=== PATIENT | female | born 1950 | race Caucasian/White ===

== ENCOUNTER 2019-01-13 15:45 | Inpatient (IN) | payer MEDICARE, OTHER ==
[~2019-01-13] VITALS: Ht 172.7 cm; Wt 56.8 kg
[2019-01-13] VITALS (7 sets, daily range): BP systolic 82–138; BP diastolic 50–78
[2019-01-13 16:56] LABS: BASOPHILS % (AUTO) 0 % (0-10); EOSINOPHILS # (AUTO) 0.1 10^3/uL (0.0-0.3); EOSINOPHILS % (AUTO) 0 % (0-10); HEMATOCRIT 45 % (35-52); HEMOGLOBIN 14.7 G/DL (11.5-16.0); LYMPHOCYTES # (AUTO) 0.8 X 10^3 (1.0-4.0); LYMPHOCYTES % (AUTO) 4 % (12-44); MEAN CORPUSCULAR HEMOGLOBIN 29 PG (25-34); MEAN CORPUSCULAR HGB CONC 33 G/DL (32-36); MEAN CORPUSCULAR VOLUME 90 FL (80-99); MEAN PLATELET VOLUME 10.3 FL (7.4-10.4); MONOCYTES # (AUTO) 1.9 X 10^3 (0.0-1.0); MONOCYTES % (AUTO) 9 % (0-12); NEUTROPHILS # (AUTO) 18.7 X 10^3 (1.8-7.8); NEUTROPHILS % (AUTO) 86 % (42-75); PLATELET COUNT 272 10^3/uL (130-400); RED CELL DISTRIBUTION WIDTH 13.4 % (10.0-14.5); WHITE BLOOD COUNT 21.7 10^3/uL (4.3-11.0)
[2019-01-13 16:57] LABS: BASOPHILS # (AUTO) 0.1 10^3/uL (0.0-0.1)
[2019-01-13 17:08] LABS: CHLORIDE 102 MMOL/L (98-107); POTASSIUM 4.2 MMOL/L (3.6-5.0); SODIUM 143 MMOL/L (135-145)
[2019-01-13 17:09] LABS: ALANINE AMINOTRANSFERASE 16 U/L (0-55); ALBUMIN 4.3 GM/DL (3.2-4.5); ALKALINE PHOSPHATASE 107 U/L (40-136); BILIRUBIN,TOTAL 0.5 MG/DL (0.1-1.0); BUN/CREATININE RATIO 31; CALCIUM 9.5 MG/DL (8.5-10.1); CARBON DIOXIDE 20 MMOL/L (21-32); CREATININE SERUM 0.72 MG/DL (0.60-1.30); GFR ESTIMATED > 60; GLUCOSE 109 MG/DL (70-105); TOTAL PROTEIN 7.3 GM/DL (6.4-8.2)
[2019-01-13 17:27] LABS: BILIRUBIN,URINE NEGATIVE (NEGATIVE); CLARITY,URINE CLEAR; COLOR,URINE YELLOW; GLUCOSE, URINE (UA) NEGATIVE (NEGATIVE); KETONES,URINE NEGATIVE (NEGATIVE); NITRITE,URINE NEGATIVE (NEGATIVE); PH,URINE 7.5 (5-9); PROTEIN,URINE NEGATIVE (NEGATIVE)
[2019-01-13 17:28] LABS: LEUKOCYTE ESTERASE ,URINE NEGATIVE (NEGATIVE); SQUAMOUS EPITHELIAL CELL,UR RARE /HPF
[2019-01-13 17:28] LABS: BAND NEUTROPHILS 12 %; BASOPHILS % (MANUAL) 0 %; EOSINOPHILS % (MANUAL) 0 %; LYMPHOCYTES % (MANUAL) 3 %; MONOCYTES % (MANUAL) 9 %; NEUTROPHILS % (MANUAL) 76 %; RBC MORPH NORMAL
[2019-01-13] MEDS ORDERED: fentaNYL INJECTION 100 MCG/2 ML AMP ONE (17:39)
[2019-01-13] MEDS ORDERED: HOLD METFORMIN - RECEIVED CONTRAST 20 ML VIAL IV SCH (17:45)
[2019-01-13] MEDS ORDERED: NS 100 ML (IVPB) BAG IV ONE (17:45)
[2019-01-13] MEDS ORDERED: fentaNYL INJECTION 100 MCG/2 ML AMP IVP ONE ×2 (17:45→19:30)
[2019-01-13] MEDS ORDERED: CATHETER FLUSH 10 ML SYR IV PRN (17:45)
[2019-01-13] MEDS ORDERED: IOHEXOL 350 MG/ML 100 ML (OMNIPAQUE 350) VIAL IV ONE (17:45)
--- NOTE | 2019-01-13 17:46 | ED GI ---
General Chief Complaint: Abdominal/GI Problems Stated Complaint: LOWER ABD PAIN Nursing Triage Note: Patient reports lower abdomen pain and constipation Sepsis Screen: No Definite Risk Source of Information: Patient Exam Limitations: No Limitations (HALEY ZIMMER MD) History of Present Illness Date Seen by Provider: Jan 13, 2019 Time Seen by Provider: 16:40 Initial Comments The patient is a 68-year-old white female who presents with a complaint of low abdominal pain. She reports that when she awakened this morning she had the sensation that she needed to defecate. This sensation has increased through the day but she has been unable to have a bowel movement. She normally has a bowel movement each day but occasionally has a skipped day. The pain has an increased through the day. She still feels as if she needs to have a bowel movement but has been unable to do so. There have been no belly surgeries other than a Pfannenstiel type . She considers herself otherwise been in good health. Timing/Duration: 12 Hours Severity/Quality: Moderate Location: Suprapubic Radiation: No Radiation (HALEY ZIMMER MD) Allergies and Home Medications Allergies Coded Allergies: No Known Drug Allergies (Unverified , 01/13/19) Patient Home Medication List Home Medication List Reviewed: Yes (DONALD NAVAS MD) Review of Systems Review of Systems Constitutional: see HPI EENTM: No Symptoms Reported Respiratory: No Symptoms Reported Cardiovascular: No Symptoms Reported Gastrointestinal: See HPI, Abdominal Pain Genitourinary: No Symptoms Reported Musculoskeletal: no symptoms reported Skin: no symptoms reported Psychiatric/Neurological: No Symptoms Reported Endocrine: No Symptoms Reported Hematologic/Lymphatic: No Symptoms Reported (HALEY ZIMMER MD) Past Yivyneu-Odrddc-Cudtpd Hx Patient Social History Alcohol Use: Denies Use Recreational Drug Use: No Smoking Status: Never a Smoker 2nd Hand Smoke Exposure: No Recent Foreign Travel: No Contact w/Someone Who Travel: No Recent Infectious Disease Expo: No Recent Hopitalizations: No Physical Abuse: No Sexual Abuse: No Mistreated: No Fear: No (HALEY ZIMMER MD) Seasonal Allergies Seasonal Allergies: No (HALEY ZIMMER MD) Past Medical History Surgeries: Yes Section Respiratory: No Cardiac: No Neurological: No Genitourinary: No Gastrointestinal: No Musculoskeletal: Yes Chronic Back Pain Endocrine: No HEENT: No Cancer: No Psychosocial: No Integumentary: No Blood Disorders: No (HALEY ZIMMER MD) Physical Exam Vital Signs Vital Signs - First Documented 01/13/19 15:55 Temp 98.1 Pulse 71 Resp 20 B/P (MAP) 110/64 (79) Pulse Ox 99 O2 Delivery Room Air (DONALD NAVAS MD) Vital Signs Capillary Refill : Less Than 3 Seconds (HALEY ZIMMER MD) Height/Weight/BMI Height: 5'8.00" Weight: 124lbs. oz. [id number]; BMI Method:Stated General Appearance: moderate distress HEENT: normal ENT inspection Neck: full range of motion Respiratory: chest non-tender, lungs clear, normal breath sounds, no respiratory distress, no accessory muscle use Cardiovascular: normal peripheral pulses, regular rate, rhythm, no edema, no gallop, no JVD, no murmur Gastrointestinal: normal bowel sounds, non tender, soft, no organomegaly, no pulsatile mass Extremities: normal range of motion, non-tender, normal inspection, no pedal edema, no calf tenderness, normal capillary refill, pelvis stable Back: normal inspection Neurologic/Psychiatric: writer II-XII nml as tested, no motor/sensory deficits, alert, normal mood/affect, oriented x 3 Skin: normal color, warm/dry Lymphatic: no adenopathy (HALEY ZIMMER MD) Focused Exam Lactate Level 01/13/19 19:10: (DONALD NAVAS MD) Lactic Acid Level Laboratory Tests Test 01/13/19 19:10 (DONALD NAVAS MD) Progress/Results/Core Measures Results/Orders Lab Results Laboratory Tests Test 01/13/19 16:45 01/13/19 17:00 01/13/19 17:40 01/13/19 19:10 Range/Units White Blood Count 21.7 H 4.3-11.0 10^3/uL Red Blood Count 5.01 4.35-5.85 10^6/uL Hemoglobin 14.7 11.5-16.0 G/DL Hematocrit 45 35-52 % Mean Corpuscular Volume 90 80-99 FL Mean Corpuscular Hemoglobin 29 25-34 PG Mean Corpuscular Hemoglobin Concent 33 32-36 G/DL Red Cell Distribution Width 13.4 10.0-14.5 % Platelet Count 272 130-400 10^3/uL Mean Platelet Volume 10.3 7.4-10.4 FL Neutrophils (%) (Auto) 86 H 42-75 % Lymphocytes (%) (Auto) 4 L 12-44 % Monocytes (%) (Auto) 9 0-12 % Eosinophils (%) (Auto) 0 0-10 % Basophils (%) (Auto) 0 0-10 % Neutrophils # (Auto) 18.7 H 1.8-7.8 X 10^3 Lymphocytes # (Auto) 0.8 L 1.0-4.0 X 10^3 Monocytes # (Auto) 1.9 H 0.0-1.0 X 10^3 Eosinophils # (Auto) 0.1 0.0-0.3 10^3/uL Basophils # (Auto) 0.1 0.0-0.1 10^3/uL Neutrophils % (Manual) 76 % Lymphocytes % (Manual) 3 % Monocytes % (Manual) 9 % Eosinophils % (Manual) 0 % Basophils % (Manual) 0 % Band Neutrophils 12 % Blood Morphology Comment NORMAL Sodium Level 143 135-145 MMOL/L Potassium Level 4.2 3.6-5.0 MMOL/L Chloride Level 102 98-107 MMOL/L Carbon Dioxide Level 20 L 21-32 MMOL/L Anion Gap 21 H 5-14 MMOL/L Blood Urea Nitrogen 22 H 7-18 MG/DL Creatinine 0.72 0.60-1.30 MG/DL Estimat Glomerular Filtration Rate > 60 BUN/Creatinine Ratio 31 Glucose Level 109 H 70-105 MG/DL Calcium Level 9.5 8.5-10.1 MG/DL Corrected Calcium 9.3 8.5-10.1 MG/DL Total Bilirubin 0.5 0.1-1.0 MG/DL Aspartate Amino Transf (AST/SGOT) 18 5-34 U/L Alanine Aminotransferase (ALT/SGPT) 16 0-55 U/L Alkaline Phosphatase 107 40-136 U/L Total Protein 7.3 6.4-8.2 GM/DL Albumin 4.3 3.2-4.5 GM/DL Urine Color YELLOW YELLOW Urine Clarity CLEAR BROWN Urine pH 7.5 5.0 5-9 Urine Specific [place] <1.005 >1.030 1.016-1.022 Urine Protein NEGATIVE TRACE NEGATIVE Urine Glucose (UA) NEGATIVE NEGATIVE NEGATIVE Urine Ketones NEGATIVE NEGATIVE NEGATIVE Urine Nitrite NEGATIVE NEGATIVE NEGATIVE Urine Bilirubin NEGATIVE 2+ H NEGATIVE Urine Urobilinogen 1.0 1.0 NORMAL MG/DL Urine Leukocyte Esterase NEGATIVE TRACE NEGATIVE Urine RBC (Auto) NEGATIVE NEGATIVE NEGATIVE Urine RBC NONE NONE /HPF Urine WBC NONE 2-5 /HPF Urine Squamous Epithelial Cells RARE 0-2 /HPF Urine Crystals NONE NONE /LPF Urine Bacteria NONE NONE /HPF Urine Casts NONE NONE /LPF Urine Mucus NEGATIVE NEGATIVE /LPF Urine Culture Indicated NO NO (DONALD NAVAS MD) My Orders Orders - DONALD NAVAS MD Ns Iv 1000 Ml (Sodium Chloride 0.9%) (01/13/19 18:00) Blood Culture (01/13/19 18:44) Vancomycin Injection (Vancomycin Injecti (01/13/19 18:45) Piperacillin/Tazobactam (Bulk) (Zosyn In (01/13/19 18:45) Ns Iv 1000 Ml (Sodium Chloride 0.9%) (01/13/19 19:00) Piperacillin Sodium/Tazobactam (Zosyn Vi (01/13/19 19:02) Water (Sterile) For Injection (Sterile W (01/13/19 19:02) Ns (Ivpb) (Sodium Chloride 0.9% Ivpb Bag (01/13/19 19:03) Fentanyl Injection (Sublimaze Injection (01/13/19 19:30) (DONALD NAVAS MD) Medications Given in ED Current Medications Medications Dose Ordered Sig/Antonella Route Start Time Stop Time Status Last Admin Dose Admin Fentanyl Citrate 50 mcg ONCE ONCE IVP 01/13/19 17:45 01/13/19 17:46 DC 01/13/19 17:45 50 MCG Iohexol 100 ml ONCE ONCE IV 01/13/19 17:45 01/13/19 18:12 DC 01/13/19 18:09 100 ML Piperacillin Sod/ Tazobactam Sod 4.5 gm/Sodium Chloride 120 ml @ 240 mls/hr ONCE ONCE IV 01/13/19 18:45 01/13/19 19:14 DC 01/13/19 19:14 240 MLS/HR Sodium Chloride 10 ml NEEDED PRN IV 01/13/19 17:45 01/13/19 18:09 10 ML Sodium Chloride 100 ml ONCE ONCE IV 01/13/19 17:45 01/13/19 18:12 DC 01/13/19 18:09 80 ML Sodium Chloride 1,000 ml @ 0 mls/hr Q0M ONCE IV 01/13/19 18:00 01/13/19 18:01 DC 01/13/19 18:20 0 MLS/HR (DONALD NAVAS MD) Vital Signs/I&O 01/13/19 15:55 Temp 98.1 Pulse 71 Resp 20 B/P (MAP) 110/64 (79) Pulse Ox 99 O2 Delivery Room Air (DONALD NAVAS MD) Blood Pressure Mean: 79 Progress Progress Note : Time: 19:23 Progress Note Patient care the patient at 6 p.m. shift change from Dr. Zimmer. The patient had an elevated white count of 21,000. Lactic gas and blood cultures have been done. Patient's CT the abdomen and pelvis showed dilated loops of bowels consistent with a bowel obstruction. I'm awaiting the formal reading from radiology. Telephone consultation was undertaken with Drs. Luna and Karen. The patient was given a gram of vancomycin and 4.5 g of Zosyn. This 50 kg female received at least 2 L of fluid. Patient was made more comfortable with IV fentanyl. She was transferred to a monitored telemetry bed at [place]. Bridge orders were written. (DONALD NAVAS MD) Departure Communication (Admissions) Time/Spoke to Admitting Phy: 19:27 Dr. Luna Time/Spoke to Consulting Phy: 19:27 Dr. Jones (DONALD NAVAS MD) Impression Primary Impression: Bowel obstruction Qualified Codes: K56.609 - Unspecified intestinal obstruction, unspecified as to partial versus complete obstruction Additional Impression: Sepsis Qualified Codes: A41.9 - Sepsis, unspecified organism Disposition: ADMITTED INPATIENT Condition: Improved Admissions Decision to Admit Reason: Admit from ER (General) Decision to Admit/Date: Jan 13, 2019 Time/Decision to Admit Time: 19:27 (DONALD NAVAS MD) Departure-Patient Inst. Referrals: MICHAEL MEHTA MD (PCP) Primary Care Physician HALEY ZIMMER MD Jan 13, 2019 17:46 DONALD NAVAS MD Jan 13, 2019 19:28
[2019-01-13] MEDS ORDERED: NS IV 1000 ML 1,000 ML IV ONE (18:00)
[2019-01-13 18:17] LABS: CLARITY,URINE BROWN; COLOR,URINE YELLOW
[2019-01-13 18:18] LABS: BILIRUBIN,URINE 2+ (NEGATIVE); GLUCOSE, URINE (UA) NEGATIVE (NEGATIVE); KETONES,URINE NEGATIVE (NEGATIVE); LEUKOCYTE ESTERASE ,URINE TRACE (NEGATIVE); NITRITE,URINE NEGATIVE (NEGATIVE); PROTEIN,URINE TRACE (NEGATIVE); SQUAMOUS EPITHELIAL CELL,UR 0-2 /HPF
[2019-01-13] MEDS ORDERED: VANCOMYCIN INJECTION 1,000 MG in NS (IVPB) 250 ML IV SCH (18:45)
[2019-01-13] MEDS ORDERED: PIPERACILLIN/TAZOBACTAM (BULK) 4.5 GM in NS (IVPB) 100 ML IV ONE (18:45)
[2019-01-13] MEDS ORDERED: NS IV 1000 ML 1,000 ML IV SCH ×2 (19:00→21:15)
[2019-01-13] MEDS ORDERED: WATER (STERILE) FOR INJECTION 20 ML ONE (19:02)
[2019-01-13] MEDS ORDERED: PIPERACILLIN/TAZO 4.5 GM VIAL (ZOSYN) IV ONE (19:02)
[2019-01-13] MEDS ORDERED: NS (IVPB) 100 ML ONE (19:03)
[2019-01-13] MEDS ORDERED: VANCOMYCIN 1000 MG/VIAL ONE (19:22)
[2019-01-13] MEDS ORDERED: NS (IVPB) 250 ML ONE (19:22)
--- NOTE | 2019-01-13 19:34 | Diagnostic Imaging Report ---
PROCEDURE: CT abdomen and pelvis with contrast. TECHNIQUE: Multiple contiguous axial images were obtained through the abdomen and pelvis after administration of intravenous contrast. Auto Exposure Controls were utilized during the CT exam to meet ALARA standards for radiation dose reduction. INDICATION: Low abdominal pain since earlier today. Prior history of . No other surgeries known. EXAMINATION: CT abdomen and pelvis with contrast, 01/13/2019. COMPARISON: None. FINDINGS: The colon is difficult to follow in its course. There is a markedly dilated and fluid/debris-filled loop of bowel along the midline extending proximally to distally within the abdomen. This could represent a portion of a markedly distended sigmoid colon with the distal most colon decompressed. A distal obstructive process is difficult to exclude. Additionally, a swirling type appearance to the vessels and fatty tissue in the mid posterior abdomen is noted where there is a narrowed loop of large bowel, possibly portions of the sigmoid. A volvulus is not excluded. The region of the cecum is more normal in appearance but difficult to evaluate the appendix and separate from adjacent small bowel loops. No definite abscess or free air is seen. There is free fluid, however, in the pelvis. The kidneys demonstrate no acute disease. Cystic lesions are noted, bilaterally, some of which are too small for characterization. Hiatal hernia is noted. The spleen, pancreas and adrenal glands are unremarkable. Multiple cystic lesions throughout the liver are noted. Some are simple in appearance, others are indeterminate and could be followed with a dedicated CT of the liver using liver protocol non-emergently. A slightly prominent lymph node in the anterior right cardiophrenic angle noted, perhaps due to an inflammatory process but this should be followed to assure resolution. Several prominent lymph nodes in the retroperitoneum are also noted and nonspecific as well. The lung bases demonstrate chronic findings. There are subpleural nodularities, bilaterally, which could be followed to assure stability. The osseous structures demonstrate no chronic findings. IMPRESSION: 1. Markedly distended bowel loops in the midline of the abdomen, perhaps a distended sigmoid colon. See above discussion. This would suggest possible distal obstructive process versus a sigmoid volvulus. An abscess in the region is difficult to completely exclude but not definitely visualized at this time. Free fluid in pelvis is likely reactive. 2. No definite free air is seen at this time. 3. Lymphadenopathy which could be reactive; however, this should be followed to assure resolution and exclude a metastatic process. 4. Cystic lesions in the liver, see above discussion and recommendations. Other findings as above. Report was faxed to the [facility] at 7:35 p.m., by eric. Dictated by: Dictated on workstation # [id number]
--- NOTE | 2019-01-13 20:30 | NUR ---
ADILSON HARDEN admitted to room 422-1, with an admitting diagnosis of BOWEL OBSTRUCTION AND SEPSIS, on 01/13/19 from [place] via EMS, accompanied by EMS.ADILSON HARDEN introduced to surroundings, call light, bed controls, phone, TV, temperature control, lights, meal times, smoking policy, visitor policy, side rail policy, bathrooms and showers. Patient Rights given to patient in the handbook. ADILSON HARDEN verbalizes understanding that [facility] is not responsible for the loss or damage to any personal effects or valuables that are kept in the patients posession during their hospitalization.
--- NOTE | 2019-01-13 20:53 | Consultation - Surgery ---
History of Present Illness History of Present Illness Patient Consulted On(srinath/time) 01/13/19 20:45 Date Seen by Provider: Jan 13, 2019 Time Seen by Provider: 20:46 History of Present Illness Consult requested by Dr. Romero for bowel obstruction. Patient is a 68 year old female that has had feeling the need to defecate since this morning. She has not has any success and the feeling has continued to worsen all day. Nothing is making things better and she states time has just made things worse. Patient states that she does have discomfort in the lower abdomen. Not passing flatus. Has been extremely nauseated and dry heaves. She does have occasional bouts of constipation. Patient has never had a colonoscopy. She denies fever sweats chills shortness of breath or chest pain. She had a ct scan that I reviewed showing dilated loops of colon suspicious for obstruction of colon or sigmoid volvlus. Allergies and Home Medications Allergies Coded Allergies: No Known Drug Allergies (Unverified , 01/13/19) Patient Home Medication List Home Medication List Reviewed: Yes Past Wmnmbem-Pwbkln-Sedwra Hx Patient Social History Alcohol Use: Denies Use Recreational Drug Use: No Smoking Status: Never a Smoker 2nd Hand Smoke Exposure: No Recent Foreign Travel: No Contact w/Someone Who Travel: No Recent Infectious Disease Expo: No Recent Hopitalizations: No Seasonal Allergies Seasonal Allergies: No Surgeries History of Surgeries: Yes Surgeries: Section Respiratory History of Respiratory Disorde: No Cardiovascular History of Cardiac Disorders: No Neurological History of Neurological Disord: No Genitourinary History of Genitourinary Disor: No Gastrointestinal History of Gastrointestinal Di: No Musculoskeletal History of Musculoskeletal Dis: Yes Musculoskeletal Disorders: Chronic Back Pain Endocrine History of Endocrine Disorders: No HEENT History of HEENT Disorders: No Cancer History of Cancer: No Psychosocial History of Psychiatric Problem: No Integumentary History of Skin or Integumenta: No Blood Transfusions History of Blood Disorders: No Family Medical History Significant Family History: No Pertinent Family Hx Review of Systems-General Constitutional: no symptoms reported EENTM: no symptoms reported Respiratory: no symptoms reported Cardiovascular: no symptoms reported Gastrointestinal: see HPI Genitourinary: no symptoms reported Musculoskeletal: no symptoms reported Skin: no symptoms reported Psychiatric/Neurological: No Symptoms Reported Physical Exam-General Problems Physical Exam Vital Signs Vital Signs - First Documented 01/13/19 15:55 Temp 98.1 Pulse 71 Resp 20 B/P (MAP) 110/64 (79) Pulse Ox 99 O2 Delivery Room Air Capillary Refill : Less Than 3 Seconds General Appearance: mild distress HEENT: PERRL/EOMI, normal ENT inspection Neck: non-tender, full range of motion, supple, normal inspection Respiratory: chest non-tender, no respiratory distress, no accessory muscle use Cardiovascular: regular rate, rhythm Gastrointestinal: distended (slight), tenderness (minimal in lower abdomen) Rectal: deferred (at this time) Back: normal inspection, no CVA tenderness Extremities: normal range of motion, non-tender, normal inspection Neurologic/Psychiatric: feed management advisor II-XII nml as tested, no motor/sensory deficits, alert, normal mood/affect, oriented x 3 Skin: normal color, warm/dry Lymphatic: no adenopathy Data Review Labs Laboratory Tests 01/13/19 16:45: White Blood Count 21.7H, Red Blood Count 5.01, Hemoglobin 14.7, Hematocrit 45, Mean Corpuscular Volume 90, Mean Corpuscular Hemoglobin 29, Mean Corpuscular Hemoglobin Concent 33, Red Cell Distribution Width 13.4, Platelet Count 272, Mean Platelet Volume 10.3, Neutrophils (%) (Auto) 86H, Lymphocytes (%) (Auto) 4L , Monocytes (%) (Auto) 9, Eosinophils (%) (Auto) 0, Basophils (%) (Auto) 0, Neutrophils # (Auto) 18.7H, Lymphocytes # (Auto) 0.8L, Monocytes # (Auto) 1.9H, Eosinophils # (Auto) 0.1, Basophils # (Auto) 0.1, Neutrophils % (Manual) 76, Lymphocytes % (Manual) 3, Monocytes % (Manual) 9, Eosinophils % (Manual) 0, Basophils % (Manual) 0, Band Neutrophils 12, Blood Morphology Comment NORMAL, Sodium Level 143, Potassium Level 4.2, Chloride Level 102, Carbon Dioxide Level 20L, Anion Gap 21H, Blood Urea Nitrogen 22H, Creatinine 0.72, Estimat Glomerular Filtration Rate > 60, BUN/Creatinine Ratio 31, Glucose Level 109H, Calcium Level 9.5, Corrected Calcium 9.3, Total Bilirubin 0.5, Aspartate Amino Transf (AST/SGOT) 18, Alanine Aminotransferase (ALT/SGPT) 16, Alkaline Phosphatase 107, Total Protein 7.3, Albumin 4.3 01/13/19 17:00: Urine Color YELLOW, Urine Clarity CLEAR, Urine pH 7.5, Urine Specific [place] <1.005, Urine Protein NEGATIVE, Urine Glucose (UA) NEGATIVE, Urine Ketones NEGATIVE, Urine Nitrite NEGATIVE, Urine Bilirubin NEGATIVE, Urine Urobilinogen 1.0, Urine Leukocyte Esterase NEGATIVE, Urine RBC (Auto) NEGATIVE, Urine RBC NONE, Urine WBC NONE, Urine Squamous Epithelial Cells RARE, Urine Crystals NONE, Urine Bacteria NONE, Urine Casts NONE, Urine Mucus NEGATIVE, Urine Culture Ind icated NO 01/13/19 17:40: Urine Color YELLOW, Urine Clarity BROWN, Urine pH 5.0, Urine Specific [place] >1.030, Urine Protein TRACE, Urine Glucose (UA) NEGATIVE, Urine Ketones NEGATIVE, Urine Nitrite NEGATIVE, Urine Bilirubin 2+H, Urine Urobilinogen 1.0, Urine Leukocyte Esterase TRACE, Urine RBC (Auto) NEGATIVE, Urine RBC NONE, Urine WBC 2-5, Urine Squamous Epithelial Cells 0-2, Urine Crystals NONE, Urine Bacteria NONE, Urine Casts NONE, Urine Mucus NEGATIVE, Urine Culture Indicated NO 01/13/19 19:10: Lactic Acid Level 1.03 Assessment/Plan Assessment/Plan Assessment/Plan colonic obstruction possible from distal obstructive process or sigmoid volvulus Nausea leukocytosis patient ct scan reviewed and discussed with patient. discussed need for further evaluation with flexible endoscopy, but also discussed may need exploratory laparotomy possible colon resection possible colostomy all other indicated pro cedures. she understands all risks and benefits and wishes to proceed. To endoscopy at this time. JOSSE CAMACHO DO Jan 13, 2019 20:53
[2019-01-13] MEDS ORDERED: fentaNYL INJECTION 100 MCG/2 ML AMP IV PRN (21:15)
[2019-01-13] MEDS ORDERED: ONDANSETRON 4 MG/2 ML (SDV) Z0FRAN IV PRN (21:15)
[2019-01-13] MEDS ORDERED: LACTATED RINGERS 1,000 ML IV ONE (21:25)
[2019-01-13] MEDS ORDERED: MIDAZOLAM 2 MG/2 ML (VERSED) VIAL ONE (21:27)
[2019-01-13] MEDS ORDERED: PROPOFOL INJECTION 50 ML IV ONE (21:27)
[2019-01-13] MEDS ORDERED: ONDANSETRON 4 MG/2 ML (SDV) Z0FRAN ONE (21:29)
--- OUTSIDE RECORDS SUMMARY | 2019-01-13 21:46 | XMS REPORT | Continuity of Care Document ---
Author Organization Unknown Address Unknown Allergies There is no data. Medications There is no data. Problems There is no data. Procedures There is no data. Results There is no data. Encounters ACCT No. Visit Date/Time Discharge Status Pt. Type Provider Facility Loc./Unit Complaint [id number] 10/07/2018 16:00:00 10/07/2018 23:59:59 CLS Outpatient [facility]
--- OUTSIDE RECORDS SUMMARY | 2019-01-13 21:59 | XMS REPORT | Continuity of Care Document ---
Author Organization Unknown Address Unknown Allergies There is no data. Medications There is no data. Problems There is no data. Procedures There is no data. Results There is no data. Encounters ACCT No. Visit Date/Time Discharge Status Pt. Type Provider Facility Loc./Unit Complaint [id number] 10/07/2018 16:00:00 10/07/2018 23:59:59 CLS Outpatient [facility]
--- NOTE | 2019-01-13 22:50 | Progress Note-Post Operative ---
Post-Operative Progess Note Surgeon (s)/Field Technical Specialist (s) Surgeon JOSSE CAMACHO DO Field Technical Specialist: na Pre-Operative Diagnosis colonic obstruction Post-Operative Diagnosis sigmoid volvulus, superficial ischemic change sigmoid short segment Procedure & Operative Findings Date of Procedure 01/13/19 Procedure Performed/Findings flexible sigmoidoscopy Anesthesia Type per perinatal coordinator Estimated Blood Loss Estimated blood loss (mL): none Specimens/Packing Specimens Removed na JOSSE CAMACHO DO Jan 13, 2019 22:50
--- NOTE | 2019-01-13 22:52 | NUR ---
DR. CAMACHO CALLED THIS RN AND ORDERS VANCOMYCIN IV PHARMACY TO DOSE AND PIPERACILLIN/TAZO 4.5 GM/ NS 100 MLS IV @30 MLS/HR Q8H. ORDERS READ BACK AND VERIFIED.
[2019-01-13] MEDS ORDERED: PIPERACILLIN/TAZOBACTAM (BULK) 4.5 GM in NS (IVPB) 100 ML IV SCH (23:15)
[2019-01-13] MEDS: D5 LR IV SOLUTION 1,000 ML IV SCH (23:37)
[2019-01-14] VITALS (7 sets, daily range): BP systolic 88–105; BP diastolic 43–58
[2019-01-14] MEDS ORDERED: NS (IVPB) 100 ML ONE (00:44)
[2019-01-14] MEDS ORDERED: PIPERACILLIN/TAZO 4.5 GM VIAL (ZOSYN) IV ONE (00:44)
[2019-01-14] MEDS: PIPERACILLIN/TAZO 4.5 GM/NS 100 ML IV SCH ×6 (01:00→16:35)
--- NOTE | 2019-01-14 03:19 | OPERATIVE REPORT ---
DATE OF SERVICE: 01/13/2019 PREOPERATIVE DIAGNOSIS: Colonic obstruction. POSTOPERATIVE DIAGNOSIS: Sigmoid volvulus superficial ischemic change in the sigmoid short segment. PROCEDURE: Flexible sigmoidoscopy. SURGEON: Josse Jones DO ANESTHESIA: Per LABORATORY MANAGER. ESTIMATED BLOOD LOSS: None. COMPLICATIONS: None. INDICATIONS: The patient is a 68-year-old female who presented from [facility]. She was having abdominal discomfort and had CT scan finding of colonic obstruction either obstructive process versus sigmoid volvulus. She was discussed risks and benefits of procedure and wished to proceed with procedure. Consent was signed in the chart. DESCRIPTION OF PROCEDURE: The patient was taken to the endoscopy suite, placed in left lateral recumbent position. Timeout was performed. Digital rectal exam was performed. There were no palpable polyps, masses or ulcerations. Scope was inserted into the rectum and advanced up to the rectum into the sigmoid where a spiral affect was present with air and gentle pressure, this area was able to be maneuvered through resolving the volvulus. Scope was continued to be advanced demonstrated dilated colon. No other pathology visualized at that time. Once in the sigmoid colon, the colon was then decompressed and the scope was then slowly retracted back. At the point of where the volvulus was present, there was some superficial appearing ischemic changes. These do appear to be superficial and not full thickness just of the superficial mucosa, very short segment of this. Scope was then continuously slow retracted back until withdrawn into the rectum and then continued to be withdrawn until completely out. The patient tolerated the procedure well without any complications. She was taken to recovery room in stable condition. RECOMMENDATIONS: The patient is to continue close observation. Concern for the ischemic area; however, this does appear to be superficial and this may continue to improve since the volvulus was corrected. There is a chance of recurrence of the volvulus or progression of the ischemia, which the patient understands. If the patient continues to improve, we would plan on resection of this area after prepping to make a one-step surgical intervention, if things worsen. The patient understands that she may need exploratory laparotomy for resection and end colostomy. Job ID: [id number] DocumentID: [id number] Dictated Date: 01/13/2019 22:49:32 [employer]ocate Date: 01/14/2019 03:19:15 Dictated By: JOSSE JONES DO [facility]
--- NOTE | 2019-01-14 05:01 | NUR ---
THIS RN CALLED DR. GARRISON IN REGARDS TO THE PT'S BLOOD PRESSURE BEING 88/50 WITH A HEART RATE OF 84 BPM WITH A TEMPERATURE OF 100.4 TEMPORALLY. ORDERS RECEIVED TO INCREASE DEXTROSE 5%/LACTATED RINGERS IV FROM 125 MLS/HR TO 150 MLS/HR. ORDERS READ BACK AND VERIFIED. WILL CONTINUE TO MONITOR.
[2019-01-14] MEDS: D5 LR IV SOLUTION 1,000 ML IV SCH ×3 (07:00→17:46)
[2019-01-14 09:38] LABS: HEMOGLOBIN 12.2 G/DL (11.5-16.0); MEAN PLATELET VOLUME 10.7 FL (7.4-10.4); RED CELL DISTRIBUTION WIDTH 13.9 % (10.0-14.5); WHITE BLOOD COUNT 15.3 10^3/uL (4.3-11.0)
[2019-01-14 09:57] LABS: BUN/CREATININE RATIO 16; CALCIUM 8.3 MG/DL (8.5-10.1); CARBON DIOXIDE 23 MMOL/L (21-32); CHLORIDE 109 MMOL/L (98-107); CREATININE SERUM 0.81 MG/DL (0.60-1.30); GFR ESTIMATED > 60; GLUCOSE 122 MG/DL (70-105); POTASSIUM 3.6 MMOL/L (3.6-5.0); SODIUM 139 MMOL/L (135-145)
--- NOTE | 2019-01-14 10:11 | Progress Note - Surgery ---
Subjective Date Seen by a Provider: Jan 14, 2019 Time Seen by a Provider: 08:04 Subjective/Events-last exam Patient feeling better. Passing flatus. Not having pain at this time. Denies n/v fever sweats chills shortness of breath or chest pain. Focused Exam Lactate Level 01/13/19 19:10: Lactic Acid Level 1.03 Objective Exam Vital Signs Date Time Temp Pulse Resp B/P (MAP) Pulse Ox O2 Delivery O2 Flow Rate FiO2 01/14/19 08:06 99.0 82 18 104/51 (68) 96 Room Air 01/14/19 07:00 74 01/14/19 06:00 99.7 89 93/55 (68) 01/14/19 04:50 100.4 84 18 88/50 (63) 99 Room Air 01/14/19 01:00 89 01/13/19 23:57 99.0 87 20 109/70 (83) 97 Room Air 01/13/19 23:28 93 01/13/19 23:12 OxyMask 6 01/13/19 22:30 83 18 100 Room Air 01/13/19 22:25 88 18 100 OxyMask 4 01/13/19 22:20 96 18 100 OxyMask 6 01/13/19 22:15 108 18 100 OxyMask 6 01/13/19 22:10 97.9 96 18 100 OxyMask 6 01/13/19 20:50 99.4 81 20 99/68 Room Air 99.00 01/13/19 20:30 Room Air 01/13/19 19:33 98.2 81 18 104/63 (77) 95 Room Air 01/13/19 15:55 98.1 71 20 110/64 (79) 99 Room Air Capillary Refill : Less Than 3 Seconds General Appearance: No Apparent Distress (laying in bed) HEENT: PERRL/EOMI Neck: Non Tender, Supple Respiratory: No Accessory Muscle Use, No Respiratory Distress Cardiovascular: Regular Rate, Rhythm Gastrointestinal: non tender, soft, no organomegaly Extremity: Normal Range of Motion, Non Tender Neurologic/Psychiatric: Alert, Oriented x3, No Motor/Sensory Deficits, Normal Mood/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, 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 as Tested Skin: Normal Color, Warm/Dry Lymphatic: No Adenopathy Results Lab Laboratory Tests 01/13/19 16:45: White Blood Count 21.7H, Red Blood Count 5.01, Hemoglobin 14.7, Hematocrit 45, Mean Corpuscular Volume 90, Mean Corpuscular Hemoglobin 29, Mean Corpuscular Hemoglobin Concent 33, Red Cell Distribution Width 13.4, Platelet Count 272, Mean Platelet Volume 10.3, Neutrophils (%) (Auto) 86H, Lymphocytes (%) (Auto) 4L , Monocytes (%) (Auto) 9, Eosinophils (%) (Auto) 0, Basophils (%) (Auto) 0, Neutrophils # (Auto) 18.7H, Lymphocytes # (Auto) 0.8L, Monocytes # (Auto) 1.9H, Eosinophils # (Auto) 0.1, Basophils # (Auto) 0.1, Neutrophils % (Manual) 76, Lymphocytes % (Manual) 3, Monocytes % (Manual) 9, Eosinophils % (Manual) 0, Basophils % (Manual) 0, Band Neutrophils 12, Blood Morphology Comment NORMAL, Sodium Level 143, Potassium Level 4.2, Chloride Level 102, Carbon Dioxide Level 20L, Anion Gap 21H, Blood Urea Nitrogen 22H, Creatinine 0.72, Estimat Glomerular Filtration Rate > 60, BUN/Creatinine Ratio 31, Glucose Level 109H, Calcium Level 9.5, Corrected Calcium 9.3, Total Bilirubin 0.5, Aspartate Amino Transf (AST/SGOT) 18, Alanine Aminotransferase (ALT/SGPT) 16, Alkaline Phosphatase 107, Total Protein 7.3, Albumin 4.3 01/13/19 17:00: Urine Color YELLOW, Urine Clarity CLEAR, Urine pH 7.5, Urine Specific [place] <1.005, Urine Protein NEGATIVE, Urine Glucose (UA) NEGATIVE, Urine Ketones NEGATIVE, Urine Nitrite NEGATIVE, Urine Bilirubin NEGATIVE, Urine Urobilinogen 1.0, Urine Leukocyte Esterase NEGATIVE, Urine RBC (Auto) NEGATIVE, Urine RBC NONE, Urine WBC NONE, Urine Squamous Epithelial Cells RARE, Urine Crystals NONE, Urine Bacteria NONE, Urine Casts NONE, Urine Mucus NEGATIVE, Urine Culture Indicated NO 01/13/19 17:40: Urine Color YELLOW, Urine Clarity BROWN, Urine pH 5.0, Urine Specific [place] >1.030, Urine Protein TRACE, Urine Glucose (UA) NEGATIVE, Urine Ketones NEGATIVE, Urine Nitrite NEGATIVE, Urine Bilirubin 2+H, Urine Urobilinogen 1.0, Urine Leukocyte Esterase TRACE, Urine RBC (Auto) NEGATIVE, Urine RBC NONE, Urine WBC 2-5, Urine Squamous Epithelial Cells 0-2, Urine Crystals NONE, Urine Bacteria NONE, Urine Casts NONE, Urine Mucus NEGATIVE, Urine Culture Indicated NO 01/13/19 19:10: Lactic Acid Level 1.03 01/14/19 09:30: White Blood Count 15.3H, Red Blood Count 4.21L, Hemoglobin 12.2, Hematocrit 37, Mean Corpuscular Volume 88, Mean Corpuscular Hemoglobin 29, Mean Corpuscular Hemoglobin Concent 33, Red Cell Distribution Width 13.9, Platelet Count 254, Mean Platelet Volume 10.7H, Sodium Level 139, Potassium Level 3.6, Chloride Level 109H, Carbon Dioxide Level 23, Anion Gap 7, Blood Urea Nitrogen 13, Creatinine 0.81, Estimat Glomerular Filtration Rate > 60, BUN/Creatinine Ratio 16, Glucose Level 122H, Calcium Level 8.3L Assessment/Plan Assessment/Plan Assessment/Plan colonic obstruction sigmoid volvulus Nausea leukocytosis superficial ischemia of sigmoid short segment endoscopy showing sigmoid volvulus which was able to be reduced and had some superficial ischemia. wbc coming down, not having pain. will continue to medically optimize, if change may need emergent ex lap continue to monitor at this time, discussing sigmoid resection with patient Clinical Quality Measures DVT/VTE Risk/Contraindication: Risk Factor Score Per Nursin RFS Level Per Nursing on Admit: 4+=Very High JOSSE CAMACHO DO Jan 14, 2019 10:11
[2019-01-14] MEDS: VANCOMYCIN INJECTION 1,000 MG in NS (IVPB) 250 ML IV SCH (15:22)
--- NOTE | 2019-01-14 15:23 | History & Physical ---
HPI History of Present Illness: 68 yo F that presented with a couple days of worsening abdominal pain. States that yesterday it became unbearable and that is what brought her in. She states that she does not take medication and does not like to go to the doctor. She had been having loose stools and having nausea but denies any blood in stool. Never had any episode like this in the past. Source: patient Exam Limitations: no limitations Date seen by provider: Jan 14, 2019 Time Seen by Provider: 12:25 Attending Physician Angela Luna MD PCP Michael Mehta MD Consult Date of Admission Jan 13, 2019 at 18:30 Home Medications Home Medications Reviewed patient Home Medication Reconciliation performed by pharmacy medication reconciliations color technician and/or nursing. Patients Allergies have been reviewed. Allergies Coded Allergies: No Known Drug Allergies (Unverified , 01/13/19) EYC-Annukp-Kmzpyq Hx Patient Social History Alcohol Use: Denies Use Recreational Drug Use: No Smoking Status: Never a Smoker 2nd Hand Smoke Exposure: No Recent Foreign Travel: No Contact w/other who traveled: No Recent Hopitalizations: No Recent Infectious Disease Expo: No Family Medical History Significant Family History: No Pertinent Family Hx Review of Systems ([facility]) Constitutional: No chills, No fever; malaise; No weight loss EENTM: no symptoms reported; No nose congestion, No nose pain, No throat pain Respiratory: no symptoms reported; No cough, No dyspnea on exertion, No short of breath Cardiovascular: no symptoms reported; No chest pain, No edema, No palpitations Gastrointestinal: abdominal pain (RLQ), loss of appetite; No melena; nausea Genitourinary: no symptoms reported; No dysuria, No frequency, No hematuria : No Musculoskeletal: no symptoms reported; No back pain, No joint pain, No muscle pain Skin: no symptoms reported Psychiatric/Neurological: No Symptoms Reported Reviewed Test Results Reviewed Test Results Lab Laboratory Tests Test 01/13/19 16:45 01/13/19 17:00 01/13/19 17:40 01/13/19 19:10 Range/Units White Blood Count 21.7 H 4.3-11.0 10^3/uL Red Blood Count 5.01 4.35-5.85 10^6/uL Hemoglobin 14.7 11.5-16.0 G/DL Hematocrit 45 35-52 % Mean Corpuscular Volume 90 80-99 FL Mean Corpuscular Hemoglobin 29 25-34 PG Mean Corpuscular Hemoglobin Concent 33 32-36 G/DL Red Cell Distribution Width 13.4 10.0-14.5 % Platelet Count 272 130-400 10^3/uL Mean Platelet Volume 10.3 7.4-10.4 FL Neutrophils (%) (Auto) 86 H 42-75 % Lymphocytes (%) (Auto) 4 L 12-44 % Monocytes (%) (Auto) 9 0-12 % Eosinophils (%) (Auto) 0 0-10 % Basophils (%) (Auto) 0 0-10 % Neutrophils # (Auto) 18.7 H 1.8-7.8 X 10^3 Lymphocytes # (Auto) 0.8 L 1.0-4.0 X 10^3 Monocytes # (Auto) 1.9 H 0.0-1.0 X 10^3 Eosinophils # (Auto) 0.1 0.0-0.3 10^3/uL Basophils # (Auto) 0.1 0.0-0.1 10^3/uL Neutrophils % (Manual) 76 % Lymphocytes % (Manual) 3 % Monocytes % (Manual) 9 % Eosinophils % (Manual) 0 % Basophils % (Manual) 0 % Band Neutrophils 12 % Blood Morphology Comment NORMAL Sodium Level 143 135-145 MMOL/L Potassium Level 4.2 3.6-5.0 MMOL/L Chloride Level 102 98-107 MMOL/L Carbon Dioxide Level 20 L 21-32 MMOL/L Anion Gap 21 H 5-14 MMOL/L Blood Urea Nitrogen 22 H 7-18 MG/DL Creatinine 0.72 0.60-1.30 MG/DL Estimat Glomerular Filtration Rate > 60 BUN/Creatinine Ratio 31 Glucose Level 109 H 70-105 MG/DL Calcium Level 9.5 8.5-10.1 MG/DL Corrected Calcium 9.3 8.5-10.1 MG/DL Total Bilirubin 0.5 0.1-1.0 MG/DL Aspartate Amino Transf (AST/SGOT) 18 5-34 U/L Alanine Aminotransferase (ALT/SGPT) 16 0-55 U/L Alkaline Phosphatase 107 40-136 U/L Total Protein 7.3 6.4-8.2 GM/DL Albumin 4.3 3.2-4.5 GM/DL Urine Color YELLOW YELLOW Urine Clarity CLEAR BROWN Urine pH 7.5 5.0 5-9 Urine Specific [place] <1.005 >1.030 1.016-1.022 Urine Protein NEGATIVE TRACE NEGATIVE Urine Glucose (UA) NEGATIVE NEGATIVE NEGATIVE Urine Ketones NEGATIVE NEGATIVE NEGATIVE Urine Nitrite NEGATIVE NEGATIVE NEGATIVE Urine Bilirubin NEGATIVE 2+ H NEGATIVE Urine Urobilinogen 1.0 1.0 NORMAL MG/DL Urine Leukocyte Esterase NEGATIVE TRACE NEGATIVE Urine RBC (Auto) NEGATIVE NEGATIVE NEGATIVE Urine RBC NONE NONE /HPF Urine WBC NONE 2-5 /HPF Urine Squamous Epithelial Cells RARE 0-2 /HPF Urine Crystals NONE NONE /LPF Urine Bacteria NONE NONE /HPF Urine Casts NONE NONE /LPF Urine Mucus NEGATIVE NEGATIVE /LPF Urine Culture Indicated NO NO Lactic Acid Level 1.03 0.50-2.00 MMOL/L Test 01/14/19 09:30 Range/Units White Blood Count 15.3 H 4.3-11.0 10^3/uL Red Blood Count 4.21 L 4.35-5.85 10^6/uL Hemoglobin 12.2 11.5-16.0 G/DL Hematocrit 37 35-52 % Mean Corpuscular Volume 88 80-99 FL Mean Corpuscular Hemoglobin 29 25-34 PG Mean Corpuscular Hemoglobin Concent 33 32-36 G/DL Red Cell Distribution Width 13.9 10.0-14.5 % Platelet Count 254 130-400 10^3/uL Mean Platelet Volume 10.7 H 7.4-10.4 FL Sodium Level 139 135-145 MMOL/L Potassium Level 3.6 3.6-5.0 MMOL/L Chloride Level 109 H 98-107 MMOL/L Carbon Dioxide Level 23 21-32 MMOL/L Anion Gap 7 5-14 MMOL/L Blood Urea Nitrogen 13 7-18 MG/DL Creatinine 0.81 0.60-1.30 MG/DL Estimat Glomerular Filtration Rate > 60 BUN/Creatinine Ratio 16 Glucose Level 122 H 70-105 MG/DL Calcium Level 8.3 L 8.5-10.1 MG/DL Physical Exam-([facility]) Physical Exam Vital Signs VS - Last 72 Hours, by Label 01/13/19 01/13/19 01/13/19 01/13/19 15:55 19:33 20:30 20:50 Temp 98.1 98.2 99.4 Pulse 71 81 81 Resp 20 18 20 B/P (MAP) 110/64 (79) 104/63 (77) 99/68 Pulse Ox 99 95 O2 Delivery Room Air Room Air Room Air Room Air O2 Flow Rate 99.00 01/13/19 01/13/19 01/13/19 01/13/19 22:10 22:15 22:20 22:25 Temp 97.9 Pulse 96 108 96 88 Resp 18 18 18 18 Pulse Ox 100 100 100 100 O2 Delivery OxyMask OxyMask OxyMask OxyMask O2 Flow Rate 6 6 6 4 01/13/19 01/13/19 01/13/19 01/13/19 22:30 23:12 23:28 23:57 Temp 99.0 Pulse 83 93 87 Resp 18 20 B/P (MAP) 109/70 (83) Pulse Ox 100 97 O2 Delivery Room Air OxyMask Room Air O2 Flow Rate 6 01/14/19 01/14/19 01/14/19 01/14/19 01:00 04:50 06:00 07:00 Temp 100.4 99.7 Pulse 89 84 89 74 Resp 18 B/P (MAP) 88/50 (63) 93/55 (68) Pulse Ox 99 O2 Delivery Room Air 01/14/19 01/14/19 01/14/19 01/14/19 08:06 11:55 12:20 12:28 Temp 99.0 98.8 Pulse 82 82 73 Resp 18 18 B/P (MAP) 104/51 (68) 105/51 (69) Pulse Ox 96 98 O2 Delivery Room Air Room Air Room Air O2 Flow Rate 0.00 Capillary Refill : Less Than 3 Seconds General Appearance: mild distress (due to abd pain) HEENT: PERRL/EOMI Neck: non-tender, full range of motion, supple Respiratory: chest non-tender, lungs clear, normal breath sounds, no respiratory distress, no accessory muscle use Cardiovascular: normal peripheral pulses, regular rate, rhythm, no edema, no murmur Gastrointestinal: soft, rebound (RLQ); No mass Back: no CVA tenderness, no vertebral tenderness Extremities: normal range of motion, non-tender, normal inspection, no pedal edema, no calf tenderness, normal capillary refill Neurologic/Psychiatric: 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, no motor/sensory deficits, alert, normal mood/affect, oriented x 3 Skin: normal color, warm/dry Lymphatic: no adenopathy Assessment/Plan Assessment/Plan Admission Status: Inpatient Order (span 2 midnights) Reason for Inpatient Admission: NPO requiring IVFs and will need surgery (1) Sigmoid volvulus Status: Acute Assessment & Plan: - Dr Jones managing patient, plan to take patient to surgery at the beginning of the week, NPO (2) Ischemic bowel disease Status: Acute (3) Abdominal pain Status: Acute Assessment & Plan: - Will continue to monitor closely Qualifiers: Qualified Codes: R10.31 - Right lower quadrant pain Clinical Quality Measures DVT/VTE Risk/Contraindication: Risk Factor Score Per Nursin RFS Level Per Nursing on Admit: 4+=Very High Copy Copies To 1: MICHAEL MEHTA MD, HOLLY R MD Jan 14, 2019 15:23
[2019-01-15] MEDS: PIPERACILLIN/TAZO 4.5 GM/NS 100 ML IV SCH ×8 (00:30→23:36)
[2019-01-15] MEDS: D5 LR IV SOLUTION 1,000 ML IV SCH ×3 (00:30→14:44)
[2019-01-15 04:00] VITALS: BP 93/52
[2019-01-15 05:09] LABS: BASOPHILS % (AUTO) 0 % (0-10); EOSINOPHILS # (AUTO) 0.2 10^3/uL (0.0-0.3); EOSINOPHILS % (AUTO) 2 % (0-10); HEMATOCRIT 34 % (35-52); LYMPHOCYTES # (AUTO) 1.4 X 10^3 (1.0-4.0); LYMPHOCYTES % (AUTO) 14 % (12-44); MEAN CORPUSCULAR HEMOGLOBIN 29 PG (25-34); MEAN CORPUSCULAR HGB CONC 33 G/DL (32-36); MEAN CORPUSCULAR VOLUME 89 FL (80-99); MEAN PLATELET VOLUME 10.7 FL (7.4-10.4); MONOCYTES # (AUTO) 1.2 X 10^3 (0.0-1.0); MONOCYTES % (AUTO) 11 % (0-12); NEUTROPHILS # (AUTO) 7.5 X 10^3 (1.8-7.8); NEUTROPHILS % (AUTO) 73 % (42-75); PLATELET COUNT 226 10^3/uL (130-400); WHITE BLOOD COUNT 10.3 10^3/uL (4.3-11.0)
[2019-01-15 05:31] LABS: BUN/CREATININE RATIO 8; CALCIUM 7.7 MG/DL (8.5-10.1); CARBON DIOXIDE 22 MMOL/L (21-32); CHLORIDE 109 MMOL/L (98-107); CREATININE SERUM 0.75 MG/DL (0.60-1.30); GFR ESTIMATED > 60; GLUCOSE 109 MG/DL (70-105); SODIUM 139 MMOL/L (135-145)
[2019-01-15 06:18] VITALS: BP 102/56
[2019-01-15 08:00] VITALS: BP 104/59
[2019-01-15] MEDS: POTASSIUM CL 10MEQ/50ML IVPB 50 ML IV SCH ×2 (08:11→08:13)
--- NOTE | 2019-01-15 10:12 | Progress Note ---
Subjective Subjective/Events-last exam Patient doing well this AM. States that her pain is improved but it still hurts when pressed on. NPO. Review of Systems Date Seen by Provider: Jan 15, 2019 Time Seen by Provider: 08:35 Pulmonary: No Dyspnea, No Cough Cardiovascular: No: Chest Pain, Palpitations, Edema Gastrointestinal: Abdominal Pain, Diarrhea; No: Nausea, Vomiting Genitourinary: No Dysuria Focused Exam Lactate Level 01/13/19 19:10: Lactic Acid Level 1.03 Objective Exam Last Set of Vital Signs Vital Signs Date Time Temp Pulse Resp B/P (MAP) Pulse Ox O2 Delivery O2 Flow Rate FiO2 01/15/19 08:30 94 Room Air 0.00 01/15/19 07:00 90 01/15/19 06:18 100.0 20 102/56 (71) Capillary Refill : Less Than 3 Seconds I&O Intake and Output 01/15/19 00:00 Intake Total 370 ml Output Total 650 ml Balance -280 ml Intake Oral 0 ml IV Total 370 ml Output Urine Total 650 ml # Voids 1 # Bowel Movements 3 General: Alert, Oriented X3, Cooperative, No Acute Distress HEENT: Mucous Memb Moist/[place] Lungs: Clear to Auscultation, Normal Air Movement Heart: Regular Rate, No Murmurs Abdomen: Soft, Other (RLQ ttp) Extremities: No Edema, No Tenderness/Swelling Results/Procedures Lab Laboratory Tests 01/15/19 04:47: White Blood Count 10.3, Red Blood Count 3.81L, Hemoglobin 11.0L, Hematocrit 34L, Mean Corpuscular Volume 89, Mean Corpuscular Hemoglobin 29, Mean Corpuscular Hemoglobin Concent 33, Red Cell Distribution Width 14.0, Platelet Count 226, Me an Platelet Volume 10.7H, Neutrophils (%) (Auto) 73, Lymphocytes (%) (Auto) 14, Monocytes (%) (Auto) 11, Eosinophils (%) (Auto) 2, Basophils (%) (Auto) 0, Neutrophils # (Auto) 7.5, Lymphocytes # (Auto) 1.4, Monocytes # (Auto) 1.2H, Eosinophils # (Auto) 0.2, Basophils # (Auto) 0.0, Sodium Level 139, Potassium Level 3.0L, Chloride Level 109H, Carbon Dioxide Level 22, Anion Gap 8, Blood Urea Nitrogen 6L, Creatinine 0.75, Estimat Glomerular Filtration Rate > 60, BUN/Creatinine Ratio 8, Glucose Level 109H, Calcium Level 7.7L Microbiology 01/13/19 Blood Culture - Preliminary, Resulted No growth Assessment/Plan Assessment/Plan (1) Sigmoid volvulus Status: Acute Assessment & Plan: - Dr Jones managing patient, plan to take patient to surgery at the beginning of the week, NPO 01/15: Spoke with Dr Jones and he plans to prep patient today for surgery tomorrow afternoon (2) Ischemic bowel disease Status: Acute (3) Abdominal pain Status: Acute Assessment & Plan: - Will continue to monitor closely Qualifiers: Qualified Codes: R10.31 - Right lower quadrant pain Clinical Quality Measures DVT/VTE Risk/Contraindication: Risk Factor Score Per Nursin RFS Level Per Nursing on Admit: 4+=Very High KEL GARRISON MD Jan 15, 2019 10:12
[2019-01-15] MEDS ORDERED: GOLYTELY POWDER 4000 ML BTL PO NR (11:38)
[2019-01-15 12:00] VITALS: BP 112/70
[2019-01-15] MEDS: VANCOMYCIN INJECTION 1,000 MG in NS (IVPB) 250 ML IV SCH (14:42)
[2019-01-15 16:27] VITALS: BP 132/61
--- NOTE | 2019-01-15 17:17 | Progress Note - Surgery ---
Subjective Date Seen by a Provider: Jan 15, 2019 Time Seen by a Provider: 10:00 Subjective/Events-last exam patient states she's doing well. No significant pain. Patient passing flatus and having liquid stool. No new complaints. Denies any nausea vomiting fever sweats chills shortness of breath or chest pain. WBC down. Focused Exam Lactate Level 01/13/19 19:10: Lactic Acid Level 1.03 Objective Exam Vital Signs Date Time Temp Pulse Resp B/P (MAP) Pulse Ox O2 Delivery O2 Flow Rate FiO2 01/15/19 16:27 99.6 69 18 132/61 (84) 100 Room Air 01/15/19 13:00 70 01/15/19 12:00 99.6 69 18 112/70 (84) 98 Room Air 01/15/19 08:30 94 Room Air 0.00 01/15/19 08:00 99.8 66 18 104/59 (74) 96 Room Air 01/15/19 07:00 90 01/15/19 06:18 100.0 69 20 102/56 (71) 94 Room Air 01/15/19 04:00 100.2 90 20 93/52 (66) 92 Room Air 01/15/19 01:00 72 01/14/19 23:43 100.2 90 20 93/52 (66) 92 Room Air 01/14/19 20:21 98.7 80 20 104/51 (68) 95 Room Air 01/14/19 19:00 86 01/14/19 17:48 99.8 I & O 01/15/19 07:00 Intake Total 370 ml Output Total 1050 ml Balance -680 ml Capillary Refill : Less Than 3 Seconds General Appearance: No Apparent Distress HEENT: PERRL/EOMI, Normal ENT Inspection Neck: Non Tender, Supple Respiratory: Chest Non Tender, No Accessory Muscle Use, No Respiratory Distress Cardiovascular: Regular Rate, Rhythm Gastrointestinal: non tender, soft, no organomegaly; No mass Extremity: Normal Range of Motion, Non Tender Neurologic/Psychiatric: Alert, Oriented x3, No Motor/Sensory Deficits, Normal Mood/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, 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 Skin: Normal Color, Warm/Dry Lymphatic: No Adenopathy Results Lab Laboratory Tests 01/15/19 04:47: White Blood Count 10.3, Red Blood Count 3.81L, Hemoglobin 11.0L, Hematocrit 34L, Mean Corpuscular Volume 89, Mean Corpuscular Hemoglobin 29, Mean Corpuscular Hemoglobin Concent 33, Red Cell Distribution Width 14.0, Platelet Count 226, Mean Platelet Volume 10.7H, Neutrophils (%) (Auto) 73, Lymphocytes (%) (Auto) 14, Monocytes (%) (Auto) 11, Eosinophils (%) (Auto) 2, Basophils (%) (Auto) 0, Neutrophils # (Auto) 7.5, Lymphocytes # (Auto) 1.4, Monocytes # (Auto) 1.2H, Eosinophils # (Auto) 0.2, Basophils # (Auto) 0.0, Sodium Level 139, Potassium Level 3.0L, Chloride Level 109H, Carbon Dioxide Level 22, Anion Gap 8, Blood Urea Nitrogen 6L, Creatinine 0.75, Estimat Glomerular Filtration Rate > 60, BUN/Creatinine Ratio 8, Glucose Level 109H, Calcium Level 7.7L Microbiology 01/13/19 Blood Culture - Preliminary, Resulted No growth Assessment/Plan Assessment/Plan Assessment/Plan colonic obstruction sigmoid volvulus Nausea leukocytosis superficial ischemia of sigmoid short segment endoscopy showing sigmoid volvulus which was able to be reduced and had some superficial ischemia. wbc down, not having pain. will continue to medically optimize discussed risk and benefits of laparoscopic hand-assisted sigmoid resection all other indicated procedures possible colostomy. Patient understands risk and benefits and wishes to proceed. Plan on prep today and surgery tomorrow. Clinical Quality Measures DVT/VTE Risk/Contraindication: Risk Factor Score Per Nursin RFS Level Per Nursing on Admit: 4+=Very High JOSSE CAMACHO DO Jan 15, 2019 17:16
[2019-01-15 20:42] VITALS: BP 124/59
[2019-01-16] VITALS (11 sets, daily range): BP systolic 102–133; BP diastolic 52–85
[2019-01-16] MEDS: D5 LR IV SOLUTION 1,000 ML IV SCH (01:54)
[2019-01-16 05:37] LABS: BASOPHILS % (AUTO) 1 % (0-10); EOSINOPHILS # (AUTO) 0.3 10^3/uL (0.0-0.3); EOSINOPHILS % (AUTO) 5 % (0-10); HEMATOCRIT 32 % (35-52); HEMOGLOBIN 10.6 G/DL (11.5-16.0); LYMPHOCYTES # (AUTO) 1.4 X 10^3 (1.0-4.0); LYMPHOCYTES % (AUTO) 25 % (12-44); MEAN CORPUSCULAR HEMOGLOBIN 29 PG (25-34); MEAN CORPUSCULAR HGB CONC 33 G/DL (32-36); MEAN CORPUSCULAR VOLUME 88 FL (80-99); MEAN PLATELET VOLUME 10.9 FL (7.4-10.4); MONOCYTES # (AUTO) 0.8 X 10^3 (0.0-1.0); MONOCYTES % (AUTO) 14 % (0-12); NEUTROPHILS # (AUTO) 3.2 X 10^3 (1.8-7.8); NEUTROPHILS % (AUTO) 57 % (42-75); PLATELET COUNT 214 10^3/uL (130-400); RED CELL DISTRIBUTION WIDTH 13.5 % (10.0-14.5); WHITE BLOOD COUNT 5.6 10^3/uL (4.3-11.0)
[2019-01-16 06:04] LABS: ALANINE AMINOTRANSFERASE 11 U/L (0-55); ALBUMIN 2.9 GM/DL (3.2-4.5); ALKALINE PHOSPHATASE 45 U/L (40-136); BILIRUBIN,TOTAL 0.4 MG/DL (0.1-1.0); BUN/CREATININE RATIO 4; CALCIUM 8.3 MG/DL (8.5-10.1); CARBON DIOXIDE 25 MMOL/L (21-32); CHLORIDE 109 MMOL/L (98-107); CREATININE SERUM 0.72 MG/DL (0.60-1.30); GFR ESTIMATED > 60; GLUCOSE 102 MG/DL (70-105); MAGNESIUM 1.7 MG/DL (1.8-2.4); SODIUM 142 MMOL/L (135-145); TOTAL PROTEIN 4.8 GM/DL (6.4-8.2)
[2019-01-16] MEDS: PIPERACILLIN/TAZO 4.5 GM/NS 100 ML IV SCH ×4 (08:39→13:30)
--- NOTE | 2019-01-16 10:35 | Progress Note - Hospitalist ---
Subjective HPI/CC On Admission Date Seen by Provider: Jan 16, 2019 Time Seen by Provider: 09:30 Subjective/Events-last exam Going to the OR today by Dr. Jones due to ischemic bowel from small bowel obstruction volvulus. Denies any pain currently. No more nausea. Reviewed sec sigmoidoscopy report. Continue IV fluids. Is in no distress but awaiting surgery time. All questions answered to the best of my ability. Review of Systems General: Fatigue Gastrointestinal: Abdominal Pain Focused Exam Lactate Level Objective Exam Vital Signs Vital Signs Date Time Temp Pulse Resp B/P (MAP) Pulse Ox O2 Delivery O2 Flow Rate FiO2 01/16/19 19:40 99.1 62 18 121/69 (86) 99 Room Air 01/16/19 15:30 10 Capillary Refill : Less Than 3 Seconds General Appearance: No Apparent Distress, WD/WN, Chronically ill, Thin HEENT: PERRL/EOMI, Normal ENT Inspection Neck: Non Tender, Supple Respiratory: Chest Non Tender, Lungs Clear, Normal Breath Sounds, No Accessory Muscle Use, No Respiratory Distress Cardiovascular: Regular Rate, Rhythm, No Edema, No Gallop, No JVD, No Murmur, Normal Peripheral Pulses Rectal: Tenderness Extremity: Normal Range of Motion, Non Tender Neurologic/Psychiatric: Alert, Oriented x3, No Motor/Sensory Deficits, Normal 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 Assessment/Plan Assessment and Plan Assess & Plan/Chief Complaint Assessment: (1) Sigmoid volvulus (2) Ischemic bowel disease (3) Abdominal pain Plan: OR today Appreciate Dr Jones IVF Diagnosis/Problems Diagnosis/Problems (1) Sigmoid volvulus Status: Acute (2) Abdominal pain Status: Acute Qualifiers: Abdominal location: right lower quadrant Qualified Codes: R10.31 - Right lower quadrant pain (3) Ischemic bowel disease Status: Acute (4) Sepsis Status: Acute Qualifiers: Sepsis type: sepsis due to unspecified organism Qualified Codes: A41.9 - Sepsis, unspecified organism (5) Bowel obstruction Status: Acute Qualifiers: Intestinal obstruction type: unspecified Intestinal obstruction extent: unspecified extent Qualified Codes: K56.609 - Unspecified intestinal obstruction, unspecified as to partial versus complete obstruction Clinical Quality Measures DVT/VTE Risk/Contraindication: Risk Factor Score Per Nursin RFS Level Per Nursing on Admit: 4+=Very High ERIC BRAY DO Jan 16, 2019 10:35
[2019-01-16] MEDS ORDERED: IBUP-2055 PO (10:46)
[2019-01-16] MEDS ORDERED: FOLI200T11 PO (10:48)
[2019-01-16] MEDS ORDERED: DIPH25CA79 PO (10:48)
--- NOTE | 2019-01-16 10:49 | NUR ---
SPOKE WITH PATIENT ABOUT HOME MEDS, SHE STATES SHE DOES NOT TAKE ANY PRESCRIPTION MEDICATIONS (THE EXTERNAL MED HISTORY DID NOT SHOW ANYTHING) OTC MEDS: IBUPROFEN 200MG - 3 TABS D PRN PAIN BENADRYL 25MG- 1 D PRN ALLERGIES MULTIVITAMIN GUMMI FOR WOMEN- 1 D
[2019-01-16] MEDS ORDERED: BUP/EPI 0.5% 1:200,000 (SENSORCAINE) 30 ML VIAL ONE (12:02)
--- NOTE | 2019-01-16 12:28 | Progress Note - Surgery ---
Subjective Date Seen by a Provider: Jan 16, 2019 Time Seen by a Provider: 12:26 Subjective/Events-last exam Patient doing well. Bowel prep went well. Denies any new complaints. Currently npo for bowel resection. Denies n/v fever sweats chills shortness of breath or chest pain. Focused Exam Lactate Level 01/13/19 19:10: Lactic Acid Level 1.03 Objective Exam Vital Signs Date Time Temp Pulse Resp B/P (MAP) Pulse Ox O2 Delivery O2 Flow Rate FiO2 01/16/19 08:00 99.5 64 18 118/69 (85) 97 Room Air 01/16/19 07:56 Room Air 01/16/19 07:00 66 01/16/19 04:00 99.1 64 18 102/55 (71) 95 Room Air 01/16/19 01:00 73 01/16/19 00:58 98.8 63 18 116/56 (76) 97 Room Air 01/15/19 20:42 99.6 70 18 124/59 (80) 99 Room Air 01/15/19 20:00 Room Air 01/15/19 19:00 68 01/15/19 16:27 99.6 69 18 132/61 (84) 100 Room Air 01/15/19 13:00 70 I & O 01/16/19 07:00 Intake Total 4740 ml Output Total 2550 ml Balance 2190 ml Capillary Refill : Less Than 3 Seconds General Appearance: No Apparent Distress HEENT: PERRL/EOMI, Normal ENT Inspection Neck: Non Tender, Supple Respiratory: Chest Non Tender, No Accessory Muscle Use, No Respiratory Distress Cardiovascular: Regular Rate, Rhythm Gastrointestinal: non tender, soft, no organomegaly; No mass Extremity: Normal Range of Motion, Non Tender Neurologic/Psychiatric: Alert, Oriented x3, No Motor/Sensory Deficits, Normal Mood/Affect, guideman II-XII Norm as Tested Skin: Normal Color, Warm/Dry Lymphatic: No Adenopathy Results Lab Laboratory Tests 01/16/19 05:16: White Blood Count 5.6, Red Blood Count 3.66L, Hemoglobin 10.6L, Hematocrit 32L, Mean Corpuscular Volume 88, Mean Corpuscular Hemoglobin 29, Mean Corpuscular Hemoglobin Concent 33, Red Cell Distribution Width 13.5, Platelet Count 214, Mean Platelet Volume 10.9H, Neutrophils (%) (Auto) 57, Lymphocytes (%) (Auto) 25, Monocytes (%) (Auto) 14H, Eosinophils (%) (Auto) 5, Basophils (%) (Auto) 1, Neutrophils # (Auto) 3.2, Lymphocytes # (Auto) 1.4, Monocytes # (Auto) 0.8, Eosinophils # (Auto) 0.3, Basophils # (Auto) 0.0, Sodium Level 142, Potassium L evel 3.0L, Chloride Level 109H, Carbon Dioxide Level 25, Anion Gap 8, Blood Urea Nitrogen 3L, Creatinine 0.72, Estimat Glomerular Filtration Rate > 60, BUN/Creatinine Ratio 4, Glucose Level 102, Calcium Level 8.3L, Corrected Calcium 9.2, Magnesium Level 1.7L, Total Bilirubin 0.4, Aspartate Amino Transf (AST/SGOT) 13, Alanine Aminotransferase (ALT/SGPT) 11, Alkaline Phosphatase 45, Total Protein 4.8L, Albumin 2.9L Microbiology 01/13/19 Blood Culture - Preliminary, Resulted No growth Assessment/Plan Assessment/Plan Assessment/Plan colonic obstruction sigmoid volvulus Nausea leukocytosis superficial ischemia of sigmoid short segment endoscopy showing sigmoid volvulus which was able to be reduced and had some superficial ischemia. wbc down, not having pain. will continue to medically optimize For laparoscopic hand-assisted sigmoid resection all other indicated procedures possible colostomy today. Patient understands risk and benefits and wishes to proceed. Clinical Quality Measures DVT/VTE Risk/Contraindication: Risk Factor Score Per Nursin RFS Level Per Nursing on Admit: 4+=Very High JOSSE CAMACHO DO Jan 16, 2019 12:28
--- NOTE | 2019-01-16 12:48 | NUR ---
Patient off floor at this time to surgery.
[2019-01-16] MEDS ORDERED: MIDAZOLAM 2 MG/2 ML (VERSED) VIAL ONE (13:03)
[2019-01-16] MEDS ORDERED: fentaNYL INJECTION 100 MCG/2 ML AMP ONE (13:06)
[2019-01-16] MEDS: LACTATED RINGERS 1,000 ML IV PRN ×2 (13:07→14:15)
[2019-01-16] MEDS ORDERED: LIDOCAINE PF 2% 5 ML (XYLOCAINE) VIAL ONE (13:09)
[2019-01-16] MEDS ORDERED: proPOfol 200 MG/20 ML (DIPRIVAN) VIAL IV ONE (13:09)
[2019-01-16] MEDS ORDERED: SEVOFLURANE (ULTANE) 15 ML INHAL SOLN ONE ×6 (13:09→14:18)
[2019-01-16] MEDS ORDERED: DEXAMETHASONE 10 MG/ML (DECADRON) 1 ML VIAL ONE (14:04)
[2019-01-16] MEDS ORDERED: PHENYLEPHRINE 100 MCG/ML 10 ML (ANESTHESIA) SYR ONE (14:04)
[2019-01-16] MEDS ORDERED: ROCURONIUM 10 MG/ML 5 ML SYRINGE IV ONE (14:04)
[2019-01-16] MEDS ORDERED: BUPIVACAINE 0.5% 30 ML (SENSORCAINE) VIAL ONE (14:41)
[2019-01-16] MEDS ORDERED: morphine INJ 10 MG/ML 1ML (SYR OR VIAL) ONE (14:47)
[2019-01-16] MEDS ORDERED: TROUGH ORDER-PHARMACY XX NR (15:00)
[2019-01-16] MEDS ORDERED: HYDROmorphone 2 MG/ML VIAL (DILAUDID) IV ONE (15:15)
[2019-01-16] MEDS ORDERED: ONDANSETRON 4 MG/2 ML (SDV) Z0FRAN IVP PRN (15:15)
[2019-01-16] MEDS ORDERED: morphine INJ 10 MG/ML 1ML (SYR OR VIAL) IVP ONE (15:15)
--- NOTE | 2019-01-16 15:50 | NUR ---
Patient back in room from OR. Patient A&Ox4, family at bedside, call light within reach. Report received from Sheridan PIPER. Will continue to monitor.
[2019-01-16] MEDS: PROMETHAZINE INJ 25 MG/ML (PHENERGAN) AMP IVP NR (17:09)
--- NOTE | 2019-01-16 17:17 | Progress Note-Post Operative ---
Post-Operative Progess Note Surgeon (s)/Software Support Technician (s) Surgeon JOSSE CAMACHO DO Software Support Technician: na Pre-Operative Diagnosis colonic obstruction, sigmoid volvulus Post-Operative Diagnosis sigmoid volvulus around adhesion contracted Procedure & Operative Findings Date of Procedure 01/16/19 Procedure Performed/Findings open sigmoid resection c eea anastomosis. Anesthesia Type gen Estimated Blood Loss Estimated blood loss (mL): min Specimens/Packing Specimens Removed sigmoid colon JOSSE CAMACHO DO Jan 16, 2019 17:17
[2019-01-16] MEDS ORDERED: morphine INJ 5 MG/ML 1 ML VIAL IV PRN (20:30)
[2019-01-16] MEDS ORDERED: morphine INJ 4 MG/ML 1 ML (VIAL/SYRINGE) IV PRN (20:45)
[2019-01-16] MEDS: HYDROcodone/APAP 5 MG/325 MG (LORTAB) TAB PO PRN (21:01)
[2019-01-17] VITALS (7 sets, daily range): BP systolic 93–113; BP diastolic 54–65
[2019-01-17] MEDS: PIPERACILLIN/TAZO 4.5 GM/NS 100 ML IV SCH ×6 (00:43→16:45)
[2019-01-17] MEDS: D5 LR IV SOLUTION 1,000 ML IV SCH ×2 (03:10→14:02)
[2019-01-17] MEDS: HYDROcodone/APAP 5 MG/325 MG (LORTAB) TAB PO PRN ×3 (04:23→18:45)
--- NOTE | 2019-01-17 05:17 | OPERATIVE REPORT ---
DATE OF SERVICE: 01/16/2019 PREOPERATIVE DIAGNOSIS: Colonic obstruction, sigmoid volvulus. POSTOPERATIVE DIAGNOSIS: Sigmoid volvulus around adhesion contracted. SURGEON: Jason Jones DO OPERATOR ENGINEER: Dr. Villatoro, assisted in retraction, dissection and closure. ANESTHESIA: Open sigmoid resection with end-to-end anastomosis. INDICATIONS: The patient is a 68-year-old female, who presented with a colonic obstruction versus sigmoid volvulus. The patient had endoscopy that was consistent with sigmoid volvulus and some very superficial appearing ischemic changes short segment. The volvulus was able to be reduced. The patient began having flatus and having bowel movements. We discussed risks and benefits of resection and the patient understands risks and benefits and wishes to proceed. Consent was signed in the chart. DESCRIPTION OF PROCEDURE: The patient was taken to the operating suite. She was prepped and draped in a sterile fashion. Timeout was performed. Local anesthetic was infiltrated around the umbilicus and a midline incision was made for hand port. The colon was still extremely dilated and was brought out through the incision with some visualization of significant adhesion. Therefore, laparoscopic was not attempted due to a complexity with adhesions at this time. The incision was opened up slightly. Again, the sigmoid was dilated around a fixed point of adhesion that was also thickened and contracted was where the rotation appeared to have been. The adhesion was then should be divided, mobilizing in the sigmoid and descending colon and this adhesion went down towards the ligament of Treitz. Once this was mobilized, the colon was then ran demonstrating no other pathology. The colon was extremely redundant, especially in the sigmoid and ascending colon. At this time, the distal sigmoid colon was then dissected around and a linear EMERITA-75 stapler was then fired across. The white line of [place] was then mobilized along the sigmoid colon moving the colon to a more midline position, all the way up towards the spleen. The colon was then dissected around the descending and sigmoid junction. A linear EMERITA was then fired across the colon and the LigaSure was then used to remove the mesentery from the colon, removing the specimen. At this point, a pursestring stapler was then fired across the distal portion of the descending colon. This was then opened and an EEA anvil was inserted and the colon was tied around it. The rectum was then dilated serially and the EEA stapler handle was then inserted into the rectum for an end-to-end anastomosis. This was then fired and a staple was removed. Air leak test was performed demonstrating no leak of anastomosis. The small bowel was ran noting no other pathology. The cecum was slightly floppy, which had normal appearance. The liver and stomach had normal appearance. The abdomen was then irrigated with copious amounts of irrigation and suction. The fascia was then closed using 1-0 looped PDS. The wound was irrigated and the skin was then stapled. The patient tolerated procedure well without any complications. She was taken to recovery room in stable condition. Job ID: [id number] DocumentID: [id number] Dictated Date: 01/16/2019 20:27:08 Straw Hat Plunger Operator Date: 01/17/2019 05:16:09 Dictated By: DO NASIR RIVAS
[2019-01-17 05:51] LABS: BASOPHILS % (AUTO) 0 % (0-10); EOSINOPHILS % (AUTO) 0 % (0-10); HEMATOCRIT 33 % (35-52); LYMPHOCYTES # (AUTO) 1.2 X 10^3 (1.0-4.0); LYMPHOCYTES % (AUTO) 12 % (12-44); MEAN CORPUSCULAR HEMOGLOBIN 29 PG (25-34); MEAN CORPUSCULAR HGB CONC 33 G/DL (32-36); MEAN CORPUSCULAR VOLUME 88 FL (80-99); MEAN PLATELET VOLUME 11.1 FL (7.4-10.4); MONOCYTES % (AUTO) 10 % (0-12); NEUTROPHILS # (AUTO) 7.8 X 10^3 (1.8-7.8); NEUTROPHILS % (AUTO) 78 % (42-75); PLATELET COUNT 251 10^3/uL (130-400); RED CELL DISTRIBUTION WIDTH 13.7 % (10.0-14.5)
[2019-01-17 06:14] LABS: ALANINE AMINOTRANSFERASE 10 U/L (0-55); ALBUMIN 2.9 GM/DL (3.2-4.5); ALKALINE PHOSPHATASE 46 U/L (40-136); BILIRUBIN,TOTAL 0.4 MG/DL (0.1-1.0); BUN/CREATININE RATIO 7; CALCIUM 8.3 MG/DL (8.5-10.1); CARBON DIOXIDE 27 MMOL/L (21-32); CHLORIDE 104 MMOL/L (98-107); CREATININE SERUM 0.75 MG/DL (0.60-1.30); GFR ESTIMATED > 60; GLUCOSE 114 MG/DL (70-105); POTASSIUM 3.2 MMOL/L (3.6-5.0); SODIUM 138 MMOL/L (135-145); TOTAL PROTEIN 4.8 GM/DL (6.4-8.2)
--- NOTE | 2019-01-17 07:25 | Anesthesia-General Post-Op ---
General Patient Condition Mental Status/LOC: Same as Preop Cardiovascular: Satisfactory Nausea/Vomiting: Absent Respiratory: Satisfactory Pain: Controlled Complications: Absent Post Op Complications Complications None Follow Up Care/Instructions Patient Instructions None needed. Anesthesia/Patient Condition Patient Condition Patient is doing well, no complaints, stable vital signs, no apparent adverse anesthesia problems. No complications reported per nursing. [place] [facility] [place]: ELINA Ma CRNA Jan 17, 2019 07:25
[2019-01-17] MEDS: POTASSIUM CL 10MEQ/50ML IVPB 50 ML IV SCH ×4 (09:01→13:04)
--- NOTE | 2019-01-17 09:51 | Progress Note - Hospitalist ---
Subjective HPI/CC On Admission Date Seen by Provider: Jan 17, 2019 Time Seen by Provider: 09:00 Subjective/Events-last exam Pt had an uneventful night. Abdominal pain from surgery continues but tolerated. PT and OT will be ordered to get out of bed. Wants to walk. Checked labs and meds. Vitals remain stable. Review of Systems General: Fatigue Gastrointestinal: Abdominal Pain Objective Exam Vital Signs Vital Signs Date Time Temp Pulse Resp B/P (MAP) Pulse Ox O2 Delivery O2 Flow Rate FiO2 01/17/19 16:37 99.4 75 20 113/56 (75) 98 Room Air 01/16/19 15:30 10 Capillary Refill : Less Than 3 Seconds General Appearance: No Apparent Distress, WD/WN, Chronically ill, Thin HEENT: PERRL/EOMI, Normal ENT Inspection Neck: Non Tender, Supple Respiratory: Chest Non Tender, Lungs Clear, Normal Breath Sounds, No Accessory Muscle Use, No Respiratory Distress Cardiovascular: Regular Rate, Rhythm, No Edema, No Gallop, No JVD, No Murmur, Normal Peripheral Pulses Rectal: Tenderness Extremity: Normal Range of Motion, Non Tender Neurologic/Psychiatric: Alert, Oriented x3, No Motor/Sensory Deficits, Normal Mood/Affect, beam carrier hauler pusher II-XII Norm as Tested Skin: Normal Color, Warm/Dry Lymphatic: No Adenopathy Results/Procedures Lab Laboratory Tests 01/17/19 05:15 Patient resulted labs reviewed. Assessment/Plan Assessment and Plan Assess & Plan/Chief Complaint Assessment: (1) Sigmoid volvulus (2) Ischemic bowel disease (3) Abdominal pain (4) post op ileus Plan: Ileus management Appreciate Dr Jones IVF PT/OT Diagnosis/Problems Diagnosis/Problems (1) Sigmoid volvulus Status: Acute (2) Abdominal pain Status: Acute Qualifiers: Abdominal location: right lower quadrant Qualified Codes: R10.31 - Right lower quadrant pain (3) Ischemic bowel disease Status: Acute (4) Sepsis Status: Acute Qualifiers: Sepsis type: sepsis due to unspecified organism Qualified Codes: A41.9 - Sepsis, unspecified organism (5) Bowel obstruction Status: Acute Qualifiers: Intestinal obstruction type: unspecified Intestinal obstruction extent: unspecified extent Qualified Codes: K56.609 - Unspecified intestinal obstruction, unspecified as to partial versus complete obstruction (6) S/P small bowel resection Status: Acute (7) Ileus following gastrointestinal surgery Status: Acute Clinical Quality Measures DVT/VTE Risk/Contraindication: Risk Factor Score Per Nursin RFS Level Per Nursing on Admit: 4+=Very High ERIC BRAY DO Jan 17, 2019 09:51
--- NOTE | 2019-01-17 13:35 | Occupational Therapy Eval ---
OT Evaluation-General/PLF Medical Diagnosis Admission Date Jan 13, 2019 at 18:30 Medical Diagnosis: bowl obstruction / sepsis Onset Date: Jan 17, 2019 Therapy Diagnosis Therapy Diagnosis: impaired ADLs and mobility Height/Weight Height (Feet): 5 Height (Inches): 8.00 Weight (Pounds): 125 Weight (Ounces): 3.0 Precautions Precautions/Isolations: Standard Precautions Safety Interventions: None Weight Bear Status Weight Bearing Restriction: Weight Bearing/Tolerated Referral Referral Reason: Activity Tolerance, Self Care, Evaluation/Treatment, Str engthening/ROM Medical History Additional Medical History Chronic Back Pain Current History per H&P: "68 yo F that presented with a couple days of worsening abdominal pain. States that yesterday it became unbearable and that is what brought her in. She states that she does not take medication and does not like to go to the doctor. She had been having loose stools and having nausea but denies any blood in stool. Never had any episode like this in the past." Reviewed History: Yes Social History Home: Multilevel Current Living Status: Friend Entry Into Home: Stairs With Railing Steps Into Home: 2 Steps Inside Home: 10 ADL-Prior Level of Function Therapy Code Descriptions/Definitions Functional [place] Measure: 0=Not Assessed/NA 4=Minimal Assistance 1=Total Assistance 5=Supervision or Setup 2=Maximal Assistance 6=Modified [place] 3=Moderate Assistance 7=Complete [place] Therapy Quality Codes: 6 Independent with activity with or without an assistive device 5 Patient requires set up or clean up by helper. Patient completes activity by themselves 4 Supervision or touching assist (CGA). Beattie provide cues , steadying assist 3 The helper provides less than half the effort to complete the activity 2 The helper provides more than half the effort to complete the activity 1 Dependent. The helper does all the effort to complete an activity 7 Patient refused to complete or attempt activity 9 The patient did not perform the activity before the current illness or injury 88 Not attempted due to Medical conditions or safety concerns Functional Abilities and Goals: Independent: Patient completed the activities by him/herself, with or without an assistive device, with no assistance from a helper. Needed Some Help: Patient needed partial assistance from another person to complete activities. Dependent: A helper completed the activities for the patient. 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 pt agreed to OT evaluation. pt reports 4/10 abdomen pain. NSG is aware. Mental Status/Objective Patient Orientation: Normal For Age Attachments: Rothman Catheter, IV Current Glasses/Contacts: Yes Hearing Aids: No Dentures/Partials: No Hand Dominance: Right Upper Extremity ROM WNL Upper Extremity Coordination WNL Upper Extremity Sensation WNL Upper Extremity Strength WNL ADL-Treatment Therapy Code Descriptions/Definitions Functional [place] Measure: 0=Not Assessed/NA 4=Minimal Assistance 1=Total Assistance 5=Supervision or Setup 2=Maximal Assistance 6=Modified [place] 3=Moderate Assistance 7=Complete [place] Therapy Quality Codes: 6 Independent with activity with or without an assistive device 5 Patient requires set up or clean up by helper. Patient completes activity by themselves 4 Supervision or touching assist (CGA). Beattie provide cues , steadying assist 3 The helper provides less than half the effort to complete the activity 2 The helper provides more than half the effort to complete the activity 1 Dependent. The helper does all the effort to complete an activity 7 Patient refused to complete or attempt activity 9 The patient did not perform the activity before the current illness or injury 88 Not attempted due to Medical conditions or safety concerns pt independence with ADLs (LB dressing, toileting, bathing, dry shower transfer) and functional transfers using RW. good safety awareness. OT Short Term Goals Short Term Goals 1=Demonstrate adherence to instructed precautions during ADL tasks. 2=Patient will verbalize/demonstrate understanding of assistive devices/modifications for ADL. 3=Patient will improve strength/tolerance for activity to enable patient to perform ADL's. OT Alf Goals Alf Goals 1=Demonstrate adherence to instructed precautions during ADL tasks. 2=Patient will verbalize/demonstrate understanding of assistive devices/modifications for ADL. 3=Patient will improve strength/tolerance for activity to enable patient to perform ADL's. OT Education/Plan Problem List/Assessment Assessment: No Skilled OT Needs ID'd pt demo independence with ADLs and functional transfers using RW and good safety awareness. OT services not indicate secondary to pt functioning at baseline,. pt agreed she does not need OT Services. d/c OT at this time. Discharge Recommendations Plan/Recommendations: Discontinue OT Therapy D/C Recommendations: Home w/ Family Support Treatment Plan/Plan of Care Treatment,Training & Education: Yes Patient would benefit from OT for education, treatment and training to promote independence in ADL's, mobility, safety and/or upper extremity function for ADL's. Treatment Duration: Jan 17, 2019 Frequency: 1 time per week (eval only) Estimated Hrs Per Day: Other (eval only) Agreement: Yes Rehab Potential: Good Time/GCodes Start Time: 13:20 Stop Time: 13:30 Billed Treatment Time EVL 10 minutes FRANK KOHLER OT Jan 17, 2019 13:35
--- NOTE | 2019-01-17 13:38 | NUR ---
NOTE THAT PT VOICED SHE WANTED THE ALEX CATHETER OUT -- PT HAVING GOOD URINE OUTPUT -- CALLED DR CAMACHO AND GOT TO ORDER TO DC ALEX CATHETER --
--- NOTE | 2019-01-17 13:54 | Physical Therapy Evaluation ---
PT Evaluation-General Medical Diagnosis Admission Date Jan 13, 2019 at 18:30 Medical Diagnosis: bowl obstruction / sepsis Onset Date: Jan 17, 2019 Therapy Diagnosis Therapy Diagnosis: debility Height/Weight Height (Feet): 5 Height (Inches): 8.00 Weight (Pounds): 125 Weight (Ounces): 3.0 Precautions Precautions/Isolations: Standard Precautions Referral Physician: Nick Reason for Referral: Evaluation/Treatment Medical History Additional Medical History unremarkable Current History ER with c/o lower abdominal pain Reviewed History: Yes Social History Home: Multilevel Current Living Status: Friend Entry Into Home: Stairs With Railing PT Steps Into Home: 2 PT Steps Inside Home: 10 Prior/Core FIM Prior Level of Function Therapy Code Descriptions/Definitions Functional [place] Measure: 0=Not Assessed/NA 4=Minimal Assistance 1=Total Assistance 5=Supervision or Setup 2=Maximal Assistance 6=Modified [place] 3=Moderate Assistance 7=Complete [place] Therapy Quality Codes: 6 Independent with activity with or without an assistive device 5 Patient requires set up or clean up by helper. Patient completes activity by themselves 4 Supervision or touching assist (CGA). [place] provide cues , steadying assist 3 The helper provides less than half the effort to complete the activity 2 The helper provides more than half the effort to complete the activity 1 Dependent. The helper does all the effort to complete an activity 7 Patient refused to complete or attempt activity 9 The patient did not perform the activity before the current illness or injury 88 Not attempted due to Medical conditions or safety concerns Functional Abilities and Goals: Independent: Patient completed the activities by him/herself, with or without an assistive device, with no assistance from a helper. Needed Some Help: Patient needed partial assistance from another person to complete activities. Dependent: A helper completed the activities for the patient. Unknown: Not Applicable: Bed Mobility: 7 Transfers (B,C,W/C) (FIM): 7 Gait: 7 Stairs: 7 Indoor Mobility (Ambulation): Independent Stairs: Independent Prior Devices Use: None PT Evaluation-Current Subjective Patient is very agreeable to participate with PT. Pain Numeric Pain Scale: 3 Location: Lower Location Body Site: Abdomen Pain Description: Acute Objective Patient Orientation: Normal For Age Problem Solving: Good Attachments: Rothman Catheter, IV ROM/Strength ROM Lower Extremities bilateral LE WFL Strength Lower Extremities bilateral LE 5/5 Integumentary/Posture Integumentary refer to nursing notes Bowel Incontinence: No Bladder Incontinence: Rothman Cath Posture WFL Neuromuscular (Tone, Coordination, Reflexes) grossly intact Sensory Vision: Wears Glasses Hearing: Functional Hand Dominance: Right Sensation Right Lower Extremit: Intact Sensation Left Lower Extremity: Intact Transfers Therapy Code Descriptions/Definitions Functional [place] Measure: 0=Not Assessed/NA 4=Minimal Assistance 1=Total Assistance 5=Supervision or Setup 2=Maximal Assistance 6=Modified [place] 3=Moderate Assistance 7=Complete [place] Transfers (B, C, W/C) (FIM): 7 Scootin Rollin Supine to/from Sit: 7 Sit to/from Stand: 7 Gait Mode of Locomotion: Walk Anticipated Mode of Locomotion: Walk Gait (FIM): 6 Distance (FIM): 3=150 ft Distance: 600' Gait Level of Assist: 6 Gait Assistive Device: FWW Comments/Gait Description FWW for 1x use/patient is independent Balance Sitting Static: Normal Sitting Dynamic: Normal Standing Static: Normal Standing Dynamic: Normal Assessment/Needs 68 y.o. female, is currently at [facility] with all gross motor skills and [facility]. No skilled PT indicated. Rehab Potential: Good PT Plan Treatment/Plan Treatment Plan: Discontinue PT, goals met Treatment Plan: Other Treatment Duration: Jan 17, 2019 Frequency: 1 time per week Estimated Hrs Per Day: .25 hour per day Patient and/or Family Agrees t: Yes Discharge Recommendations Therapy D/C Recommendations: Home w/ Family Support Time/GCodes Time In: 1305 Time Out: 1318 Total Billed Treatment Time: 13 Total [facility] JONATHAN JIANG PT Jan 17, 2019 13:54
[2019-01-17] MEDS ORDERED: MAGNESIUM 1 GM/100 ML IVPB 100 ML IV ONE (19:45)
--- NOTE | 2019-01-17 21:01 | Progress Note - Surgery ---
Subjective Date Seen by a Provider: Jan 17, 2019 Time Seen by a Provider: 20:59 Subjective/Events-last exam doing well. pain controlled. no flatus or bm. denies n/v fever sweats chills shortness of breath or chest pain. Objective Exam Vital Signs Date Time Temp Pulse Resp B/P (MAP) Pulse Ox O2 Delivery O2 Flow Rate FiO2 01/17/19 16:37 99.4 75 20 113/56 (75) 98 Room Air 01/17/19 13:20 99.7 01/17/19 13:00 67 01/17/19 12:00 100.0 74 18 101/54 (70) 91 Room Air 01/17/19 08:00 95 Nasal Cannula 01/17/19 08:00 99.7 70 18 96/55 (69) 97 Room Air 01/17/19 07:00 63 01/17/19 04:41 97.4 56 16 106/56 (73) 94 Room Air 01/17/19 01:00 58 01/17/19 00:04 97.4 60 16 93/56 (68) 95 Room Air I & O 01/17/19 07:00 Intake Total 1510 ml Output Total 4750 ml Balance -3240 ml Capillary Refill : Less Than 3 Seconds General Appearance: No Apparent Distress, WD/WN, Chronically ill, Thin HEENT: PERRL/EOMI, Normal ENT Inspection Neck: Non Tender, Supple Respiratory: Chest Non Tender, Lungs Clear, Normal Breath Sounds, No Accessory Muscle Use, No Respiratory Distress Cardiovascular: Regular Rate, Rhythm, No Edema, No Gallop, No JVD, No Murmur, Normal Peripheral Pulses Gastrointestinal: soft, no organomegaly, tenderness (incsional, c/d/i no erythema); No mass Extremity: Normal Range of Motion, Non Tender Neurologic/Psychiatric: Alert, Oriented x3, No Motor/Sensory Deficits, Normal M ood/Affect, belt loop maker II-XII Norm as Tested Skin: Normal Color, Warm/Dry Lymphatic: No Adenopathy Results Lab Laboratory Tests 01/17/19 05:15: White Blood Count 10.0, Red Blood Count 3.78L, Hemoglobin 11.0L, Hematocrit 33L, Mean Corpuscular Volume 88, Mean Corpuscular Hemoglobin 29, Mean Corpuscular Hemoglobin Concent 33, Red Cell Distribution Width 13.7, Platelet Count 251, Mean Platelet Volume 11.1H, Neutrophils (%) (Auto) 78H, Lymphocytes (%) (Auto) 12, Monocytes (%) (Auto) 10, Eosinophils (%) (Auto) 0, Basophils (%) (Auto) 0, Neutrophils # (Auto) 7.8, Lymphocytes # (Auto) 1.2, Monocytes # (Auto) 1.0, Eosinophils # (Auto) 0.0, Basophils # (Auto) 0.0, Sodium Level 138, Potassium Level 3.2L, Chloride Level 104, Carbon Dioxide Level 27, Anion Gap 7, Blood Urea Nitrogen 5L, Creatinine 0.75, Estimat Glomerular Filtration Rate > 60, BUN/Creatinine Ratio 7, Glucose Level 114H, Calcium Level 8.3L, Corrected Calcium 9.2, Magnesium Level 1.6L, Total Bilirubin 0.4, Aspartate Amino Transf (AST/SGOT) 11, Alanine Aminotransferase (ALT/SGPT) 10, Alkaline Phosphatase 46, Total Protein 4.8L, Albumin 2.9L Microbiology 01/13/19 Blood Culture - Preliminary, Resulted No growth 01/15/19 MRSA Screen - Final, Complete MRSA not isolated Assessment/Plan Assessment/Plan Assessment/Plan colonic obstruction sigmoid volvulus Nausea leukocytosis superficial ischemia of sigmoid short segment s/p open sigmoid resection doing well increase activity continue medical management clear liquids mock removed urinating well await bowel function incentive spirometer replace K and mag Clinical Quality Measures DVT/VTE Risk/Contraindication: Risk Factor Score Per Nursin RFS Level Per Nursing on Admit: 4+=Very High JOSSE CAMACHO DO Jan 17, 2019 21:01
--- NOTE | 2019-01-17 21:28 | NUR ---
THIS RN INFORMED DR. CAMACHO PT HAVING TRIGEMINAL PVC; ASYMPTOMATIC. ORDERS TO MONITOR PT.
[2019-01-18] MEDS: PIPERACILLIN/TAZO 4.5 GM/NS 100 ML IV SCH ×8 (00:04→23:30)
[2019-01-18] MEDS: HYDROcodone/APAP 5 MG/325 MG (LORTAB) TAB PO PRN ×5 (02:38→23:59)
[2019-01-18] MEDS: D5 LR IV SOLUTION 1,000 ML IV SCH ×4 (04:09→23:30)
[2019-01-18 04:12] VITALS: BP 105/55
[2019-01-18 05:35] LABS: BASOPHILS % (AUTO) 0 % (0-10); EOSINOPHILS # (AUTO) 0.3 10^3/uL (0.0-0.3); EOSINOPHILS % (AUTO) 4 % (0-10); HEMATOCRIT 34 % (35-52); LYMPHOCYTES # (AUTO) 1.7 X 10^3 (1.0-4.0); LYMPHOCYTES % (AUTO) 25 % (12-44); MEAN CORPUSCULAR HEMOGLOBIN 29 PG (25-34); MEAN CORPUSCULAR HGB CONC 33 G/DL (32-36); MEAN CORPUSCULAR VOLUME 89 FL (80-99); MEAN PLATELET VOLUME 10.9 FL (7.4-10.4); MONOCYTES # (AUTO) 0.8 X 10^3 (0.0-1.0); MONOCYTES % (AUTO) 11 % (0-12); NEUTROPHILS # (AUTO) 4.2 X 10^3 (1.8-7.8); NEUTROPHILS % (AUTO) 60 % (42-75); PLATELET COUNT 253 10^3/uL (130-400); RED CELL DISTRIBUTION WIDTH 13.5 % (10.0-14.5)
[2019-01-18 05:47] LABS: ALANINE AMINOTRANSFERASE 9 U/L (0-55); ALBUMIN 2.8 GM/DL (3.2-4.5); ALKALINE PHOSPHATASE 40 U/L (40-136); BILIRUBIN,TOTAL 0.4 MG/DL (0.1-1.0); BUN/CREATININE RATIO 5; CALCIUM 8.2 MG/DL (8.5-10.1); CARBON DIOXIDE 26 MMOL/L (21-32); CHLORIDE 107 MMOL/L (98-107); CREATININE SERUM 0.77 MG/DL (0.60-1.30); GFR ESTIMATED > 60; GLUCOSE 99 MG/DL (70-105); POTASSIUM 2.9 MMOL/L (3.6-5.0); SODIUM 141 MMOL/L (135-145); TOTAL PROTEIN 4.7 GM/DL (6.4-8.2)
[2019-01-18 08:00] VITALS: BP 132/78
--- NOTE | 2019-01-18 10:36 | Progress Note - Hospitalist ---
Subjective HPI/CC On Admission Date Seen by Provider: Jan 18, 2019 Time Seen by Provider: 09:30 Subjective/Events-last exam We will DC telemetry No gas is produced but ambulating well and abdominal pain is improved No nausea Checked meds and labs Doing very well and appears improved Review of Systems General: Fatigue Gastrointestinal: Abdominal Pain Objective Exam Vital Signs Vital Signs Date Time Temp Pulse Resp B/P (MAP) Pulse Ox O2 Delivery O2 Flow Rate FiO2 01/18/19 16:17 99.4 68 20 117/65 (82) 96 Room Air 01/16/19 15:30 10 Capillary Refill : Less Than 3 Seconds General Appearance: No Apparent Distress, WD/WN, Chronically ill, Thin HEENT: PERRL/EOMI, Normal ENT Inspection Neck: Non Tender, Supple Respiratory: Chest Non Tender, Lungs Clear, Normal Breath Sounds, No Accessory Muscle Use, No Respiratory Distress Cardiovascular: Regular Rate, Rhythm, No Edema, No Gallop, No JVD, No Murmur, Normal Peripheral Pulses Rectal: Tenderness Extremity: Normal Range of Motion, Non Tender Neurologic/Psychiatric: Alert, Oriented x3, No Motor/Sensory Deficits, Normal Mood/Affect, 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 Assessment/Plan Assessment and Plan Assess & Plan/Chief Complaint Assessment: (1) Sigmoid volvulus (2) Ischemic bowel disease s/p resection of affected small bowel POD # 2 (3) Abdominal pain (4) post op ileus Plan: Ileus management Appreciate Dr Jones IVF PT/OT DC [place] Diagnosis/Problems Diagnosis/Problems (1) Sigmoid volvulus Status: Acute (2) Abdominal pain Status: Acute Qualifiers: Abdominal location: right lower quadrant Qualified Codes: R10.31 - Right lower quadrant pain (3) Ischemic bowel disease Status: Acute (4) Sepsis Status: Acute Qualifiers: Sepsis type: sepsis due to unspecified organism Qualified Codes: A41.9 - Sepsis, unspecified organism (5) Bowel obstruction Status: Acute Qualifiers: Intestinal obstruction type: unspecified Intestinal obstruction extent: unspecified extent Qualified Codes: K56.609 - Unspecified intestinal obstruction, unspecified as to partial versus complete obstruction (6) S/P small bowel resection Status: Acute (7) Ileus following gastrointestinal surgery Status: Acute Clinical Quality Measures DVT/VTE Risk/Contraindication: Risk Factor Score Per Nursin RFS Level Per Nursing on Admit: 4+=Very High ERIC BRAY DO Jan 18, 2019 10:36
[2019-01-18 12:00] VITALS: BP 144/81
--- NOTE | 2019-01-18 14:15 | NUR ---
Pastoral care visit.
[2019-01-18 16:17] VITALS: BP 117/65
[2019-01-18] MEDS ORDERED: ENOXAPARIN 30 MG/0.3 ML (LOVENOX) SYR SC SCH (17:30)
[2019-01-18] MEDS ORDERED: NS IV 500 ML 500 ML ONE (17:49)
[2019-01-18] MEDS ORDERED: NS IV 500 ML 500 ML IV ONE (18:00)
[2019-01-18] MEDS: ENOXAPARIN 40 MG/0.4 ML (LOVENOX) SYR SC SCH (18:00)
[2019-01-18] MEDS: POTASSIUM CL 10MEQ/50ML IVPB 50 ML IV SCH ×4 (18:09→21:59)
[2019-01-18 20:00] VITALS: BP 133/72
[2019-01-18] MEDS: LACTATED RINGERS 1,000 ML IV PRN (23:42)
[2019-01-19] VITALS: BP 126/76
[2019-01-19 06:59] LABS: HEMOGLOBIN 12.5 G/DL (11.5-16.0); MEAN PLATELET VOLUME 10.3 FL (7.4-10.4); RED CELL DISTRIBUTION WIDTH 13.5 % (10.0-14.5); WHITE BLOOD COUNT 8.4 10^3/uL (4.3-11.0)
[2019-01-19 07:20] LABS: BUN/CREATININE RATIO 6; CARBON DIOXIDE 25 MMOL/L (21-32); CHLORIDE 103 MMOL/L (98-107); GFR ESTIMATED > 60; GLUCOSE 94 MG/DL (70-105); MAGNESIUM 1.9 MG/DL (1.8-2.4); POTASSIUM 3.5 MMOL/L (3.6-5.0); SODIUM 137 MMOL/L (135-145)
[2019-01-19] MEDS: PIPERACILLIN/TAZO 4.5 GM/NS 100 ML IV SCH ×6 (07:30→23:25)
[2019-01-19] MEDS: HYDROcodone/APAP 5 MG/325 MG (LORTAB) TAB PO PRN ×4 (07:31→20:17)
[2019-01-19 08:19] VITALS: BP 135/76
[2019-01-19] MEDS ORDERED: POTASSIUM CL 10MEQ/50ML IVPB 50 ML IV ONE (10:00)
[2019-01-19] MEDS ORDERED: NS IV 500 ML 500 ML IV ONE (10:15)
--- NOTE | 2019-01-19 10:23 | Progress Note - Hospitalist ---
Subjective HPI/CC On Admission Date Seen by Provider: Jan 19, 2019 Time Seen by Provider: 09:30 Subjective/Events-last exam No bowel function has returned yet. Good bowel sounds noted on exam. Ambulating very well. On D5NS IV fluids. She is hungry. No gas or BM yet. Review of Systems Gastrointestinal: Abdominal Pain Objective Exam Vital Signs Vital Signs Date Time Temp Pulse Resp B/P (MAP) Pulse Ox O2 Delivery O2 Flow Rate FiO2 01/19/19 16:31 99.0 70 18 121/71 (88) 95 Room Air 01/16/19 15:30 10 Capillary Refill : Less Than 3 Seconds General Appearance: No Apparent Distress, WD/WN, Chronically ill, Thin HEENT: PERRL/EOMI, Normal ENT Inspection Neck: Non Tender, Supple Respiratory: Chest Non Tender, Lungs Clear, Normal Breath Sounds, No Accessory Muscle Use, No Respiratory Distress Cardiovascular: Regular Rate, Rhythm, No Edema, No Gallop, No JVD, No Murmur, Normal Peripheral Pulses Gastrointestinal: Normal Bowel Sounds, Soft Rectal: Tenderness Extremity: Normal Range of Motion, Non Tender Neurologic/Psychiatric: Alert, Oriented x3, No Motor/Sensory Deficits, Normal Mood/Affect, 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 Assessment/Plan Assessment and Plan Assess & Plan/Chief Complaint Assessment: (1) Sigmoid volvulus (2) Ischemic bowel disease s/p resection of affected small bowel POD # 3 (3) Abdominal pain (4) post op ileus Plan: Ileus management Appreciate Dr Jones [facility] PT/OT DC [place] Diagnosis/Problems Diagnosis/Problems (1) Sigmoid volvulus Status: Acute (2) Abdominal pain Status: Acute Qualifiers: Abdominal location: right lower quadrant Qualified Codes: R10.31 - Right lower quadrant pain (3) Ischemic bowel disease Status: Acute (4) Sepsis Status: Acute Qualifiers: Sepsis type: sepsis due to unspecified organism Qualified Codes: A41.9 - Sepsis, unspecified organism (5) Bowel obstruction Status: Acute Qualifiers: Intestinal obstruction type: unspecified Intestinal obstruction extent: unspecified extent Qualified Codes: K56.609 - Unspecified intestinal obstruction, unspecified as to partial versus complete obstruction (6) S/P small bowel resection Status: Acute (7) Ileus following gastrointestinal surgery Status: Acute Clinical Quality Measures DVT/VTE Risk/Contraindication: Risk Factor Score Per Nursin RFS Level Per Nursing on Admit: 4+=Very High ERIC BRAY DO Jan 19, 2019 10:23
--- NOTE | 2019-01-19 10:48 | NUR ---
THE IV 10 MEQ POTASSIUM WILL BE ADMINISTERED WHEN THE ZOSYN IS FINISHED INFUSING
[2019-01-19] MEDS: D5 LR IV SOLUTION 1,000 ML IV SCH ×2 (11:23→20:18)
[2019-01-19 16:31] VITALS: BP 121/71
[2019-01-19] MEDS: ENOXAPARIN 40 MG/0.4 ML (LOVENOX) SYR SC SCH (17:02)
--- NOTE | 2019-01-19 17:40 | Progress Note - Surgery ---
Subjective Date Seen by a Provider: Jan 19, 2019 Time Seen by a Provider: 08:25 Subjective/Events-last exam Patient no flatus or bm yet. Walking. Pain fairly controlled. Denes n/v fever sweats chills shortness of breath or chest pain. Using IS. Objective Exam Vital Signs Date Time Temp Pulse Resp B/P (MAP) Pulse Ox O2 Delivery O2 Flow Rate FiO2 01/19/19 16:31 99.0 70 18 121/71 (88) 95 Room Air 01/19/19 08:19 100.2 63 20 135/76 (95) 93 Room Air 01/19/19 08:00 Room Air 01/19/19 00:00 98.5 76 20 126/76 (93) 94 Room Air 01/18/19 20:15 Room Air 01/18/19 20:13 94 Room Air 01/18/19 20:00 98.9 74 20 133/72 (92) 93 Room Air I & O 01/19/19 07:00 Intake Total 2720 ml Output Total 3200 ml Balance -480 ml Capillary Refill : Less Than 3 Seconds General Appearance: No Apparent Distress, WD/WN, Chronically ill, Thin HEENT: PERRL/EOMI, Normal ENT Inspection Neck: Non Tender, Supple Respiratory: Chest Non Tender, Lungs Clear, Normal Breath Sounds, No Accessory Muscle Use, No Respiratory Distress Cardiovascular: Regular Rate, Rhythm, No Edema, No Gallop, No JVD, No Murmur, Normal Peripheral Pulses Gastrointestinal: soft, no organomegaly, tenderness (incsional, c/d/i no erythe ma); No mass Extremity: Normal Range of Motion, Non Tender Neurologic/Psychiatric: Alert, Oriented x3, No Motor/Sensory Deficits, Normal Mood/Affect, 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 as Tested Skin: Normal Color, Warm/Dry Lymphatic: No Adenopathy Results Lab Laboratory Tests 01/19/19 06:45: White Blood Count 8.4, Red Blood Count 4.32L, Hemoglobin 12.5, Hematocrit 38, Mean Corpuscular Volume 87, Mean Corpuscular Hemoglobin 29, Mean Corpuscular Hemoglobin Concent 33, Red Cell Distribution Width 13.5, Platelet Count 318, Mean Platelet Volume 10.3, Sodium Level 137, Potassium Level 3.5L, Chloride Level 103, Carbon Dioxide Level 25, Anion Gap 9, Blood Urea Nitrogen 4L, Creatinine 0.70, Estimat Glomerular Filtration Rate > 60, BUN/Creatinine Ratio 6, Glucose Level 94, Calcium Level 9.0, Magnesium Level 1.9 Microbiology 01/13/19 Blood Culture - Final, Complete No growth 01/15/19 MRSA Screen - Final, Complete MRSA not isolated Assessment/Plan Assessment/Plan Assessment/Plan colonic obstruction sigmoid volvulus Nausea leukocytosis superficial ischemia of sigmoid short segment s/p open sigmoid resection postop ileus hypokalemia Hyomagnesemia doing well increase activity continue medical management clear liquids await bowel function incentive spirometer replace K and mag as needed IS Clinical Quality Measures DVT/VTE Risk/Contraindication: Risk Factor Score Per Nursin RFS Level Per Nursing on Admit: 4+=Very High JOSSE CAMACHO DO Jan 19, 2019 17:40
[2019-01-20] VITALS: BP 121/86
[2019-01-20] MEDS: HYDROcodone/APAP 5 MG/325 MG (LORTAB) TAB PO PRN ×3 (01:27→14:26)
[2019-01-20 08:00] VITALS: BP 129/80
[2019-01-20 08:01] LABS: HEMOGLOBIN 12.4 G/DL (11.5-16.0); MEAN PLATELET VOLUME 10.6 FL (7.4-10.4); RED CELL DISTRIBUTION WIDTH 13.3 % (10.0-14.5); WHITE BLOOD COUNT 6.5 10^3/uL (4.3-11.0)
[2019-01-20] MEDS: PIPERACILLIN/TAZO 4.5 GM/NS 100 ML IV SCH ×2 (08:02)
[2019-01-20 08:16] LABS: BUN/CREATININE RATIO 7; CALCIUM 8.9 MG/DL (8.5-10.1); CARBON DIOXIDE 25 MMOL/L (21-32); CHLORIDE 103 MMOL/L (98-107); GFR ESTIMATED > 60; GLUCOSE 110 MG/DL (70-105); MAGNESIUM 1.6 MG/DL (1.8-2.4); SODIUM 136 MMOL/L (135-145)
[2019-01-20] MEDS: D5 LR IV SOLUTION 1,000 ML IV SCH (10:47)
--- NOTE | 2019-01-20 10:54 | Progress Note - Hospitalist ---
Subjective HPI/CC On Admission Date Seen by Provider: Jan 20, 2019 Time Seen by Provider: 09:30 Subjective/Events-last exam Patient doing very well Bowel function has returned back to normal Tolerating clear liquids General surgery agrees with discharge Review of Systems Gastrointestinal: Abdominal Pain Objective Exam Vital Signs Vital Signs Date Time Temp Pulse Resp B/P (MAP) Pulse Ox O2 Delivery O2 Flow Rate FiO2 01/20/19 08:35 96.9 01/20/19 08:00 79 18 129/80 (96) 97 Room Air 01/16/19 15:30 10 Capillary Refill : Less Than 3 Seconds General Appearance: No Apparent Distress, WD/WN, Chronically ill, Thin HEENT: PERRL/EOMI, Normal ENT Inspection Neck: Non Tender, Supple Respiratory: Chest Non Tender, Lungs Clear, Normal Breath Sounds, No Accessory Muscle Use, No Respiratory Distress Cardiovascular: Regular Rate, Rhythm, No Edema, No Gallop, No JVD, No Murmur, Normal Peripheral Pulses Gastrointestinal: Normal Bowel Sounds, Soft Rectal: Tenderness Extremity: Normal Range of Motion, Non Tender Neurologic/Psychiatric: Alert, Oriented x3, No Motor/Sensory Deficits, Normal Mood/Affect, 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 Assessment/Plan Assessment and Plan Assess & Plan/Chief Complaint Assessment: (1) Sigmoid volvulus (2) Ischemic bowel disease s/p resection of affected small bowel POD # 4 (3) Abdominal pain (4) post op ileus Plan: [place] home Diagnosis/Problems Diagnosis/Problems (1) Sigmoid volvulus Status: Acute (2) Abdominal pain Status: Acute Qualifiers: Abdominal location: right lower quadrant Qualified Codes: R10.31 - Right lower quadrant pain (3) Ischemic bowel disease Status: Acute (4) Sepsis Status: Acute Qualifiers: Sepsis type: sepsis due to unspecified organism Qualified Codes: A41.9 - Sepsis, unspecified organism (5) Bowel obstruction Status: Acute Qualifiers: Intestinal obstruction type: unspecified Intestinal obstruction extent: unspecified extent Qualified Codes: K56.609 - Unspecified intestinal obstruction, unspecified as to partial versus complete obstruction (6) S/P small bowel resection Status: Acute (7) Ileus following gastrointestinal surgery Status: Acute Clinical Quality Measures DVT/VTE Risk/Contraindication: Risk Factor Score Per Nursin RFS Level Per Nursing on Admit: 4+=Very High ERIC BRAY DO Jan 20, 2019 10:54
[2019-01-20] MEDS ORDERED: DOCU-143 PO (15:16)
[2019-01-20] MEDS ORDERED: ACHD5005 PO (15:16)
--- NOTE | 2019-01-20 15:21 | Discharge Inst-Simple/Standard ---
Discharge Inst-Standard Discharge Medications New, Converted or Re-Newed RX: RX on Chart Patient Instructions/Follow Up Plan of Care/Instructions/FU: 2 WEEKS DOUG Activity as Tolerated: No Discharge Diet: Soft Diet Other Inst to Patient Follow up Appt: Make appointment for 2-3 week. Instructions: No lifting greater than 10 pounds. No strenuous activity. May shower in 24 hours, no tub bath or soaking. Use incentive spirometer at home as directed. No Smoking Skin/Wound Care: Keep area clean and dry. Symptoms to Report: Appetite Changes, Extremity Discoloration, Numbness/Tingling, Swelling Increased, Bleeding Excessive, Eyesight Changes, Pain Increased, Urine Color Change, Constipation(Persistent), Fever over 101 degree F, Pain/Pressure in chest, Urinating Difficulty, Cough Up/Vomit Blood, Heart Beat Irreg/Pounding, Pain/Pressure in jaw, Vaginal Bleeding Increase, Cramps in feet or legs, Lightheadedness, Pain/Pressure in shoulder, Diarrhea(Persistent), Memory Changes Suddenly, Questions/Concerns, Weight gain consecutive days, Dizziness/Fainting, Nausea/Vomiting, Shortness of Breath, Weight gain over 2 pounds If questions or concerns contact your physician Or seek help at emergency department. Planned Outpatient Orders/Ref. Pneu Vac Indicated: Yes JOSSE CAMACHO DO Jan 20, 2019 15:21
--- NOTE | 2019-01-20 15:29 | Progress Note - Surgery ---
Subjective Date Seen by a Provider: Jan 20, 2019 Time Seen by a Provider: 11:00 Subjective/Events-last exam Patient passing flatus and bm. Patient doing well. No n/v. Denies fever sweats chills shortness of breath or chest pain. Pain controlled on oral pain medication. Wanting to go home. Objective Exam Vital Signs Date Time Temp Pulse Resp B/P (MAP) Pulse Ox O2 Delivery O2 Flow Rate FiO2 01/20/19 15:00 96.9 01/20/19 14:26 96.9 01/20/19 08:02 96.9 01/20/19 08:00 98.2 79 18 129/80 (96) 97 Room Air 01/20/19 08:00 Room Air 01/20/19 00:00 96.9 92 18 121/86 (98) 98 Room Air 01/19/19 20:00 Room Air 01/19/19 16:31 99.0 70 18 121/71 (88) 95 Room Air I & O 01/20/19 07:00 Intake Total 3664 ml Output Total 3600 ml Balance 64 ml Capillary Refill : Less Than 3 Seconds General Appearance: No Apparent Distress, WD/WN, Chronically ill, Thin HEENT: PERRL/EOMI, Normal ENT Inspection Neck: Non Tender, Supple Respiratory: Chest Non Tender, No Accessory Muscle Use, No Respiratory Distress Cardiovascular: Regular Rate, Rhythm Gastrointestinal: soft, no organomegaly, tenderness (incsional, c/d/i no erythema); No mass Extremity: Normal Range of Motion, Non Tender Neurologic/Psychiatric: Alert, Oriented x3, No Motor/Sensory Deficits, Normal Mood/Affect, 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 Norm as Tested Skin: Normal Color, Warm/Dry Lymphatic: No Adenopathy Results Lab Laboratory Tests 01/20/19 07:45: White Blood Count 6.5, Red Blood Count 4.28L, Hemoglobin 12.4, Hematocrit 37, Mean Corpuscular Volume 87, Mean Corpuscular Hemoglobin 29, Mean Corpuscular Hemoglobin Concent 33, Red Cell Distribution Width 13.3, Platelet Count 321, Mean Platelet Volume 10.6H, Sodium Level 136, Potassium Level 3.0L, Chloride Level 103, Carbon Dioxide Level 25, Anion Gap 8, Blood Urea Nitrogen 5L, Creatinine 0.70, Estimat Glomerular Filtration Rate > 60, BUN/Creatinine Ratio 7, Glucose Level 110H, Calcium Level 8.9, Magnesium Level 1.6L Microbiology 01/13/19 Blood Culture - Final, Complete No growth 01/15/19 MRSA Screen - Final, Complete MRSA not isolated Assessment/Plan Assessment/Plan Assessment/Plan colonic obstruction sigmoid volvulus Nausea leukocytosis superficial ischemia of sigmoid short segment s/p open sigmoid resection postop ileus hypokalemia Hyomagnesemia doing well bowel function returned advance diet to soft incentive spirometer wanting to go home, okay to id home Clinical Quality Measures DVT/VTE Risk/Contraindication: Risk Factor Score Per Nursin RFS Level Per Nursing on Admit: 4+=Very High JOSSE CAMACHO DO Jan 20, 2019 15:29
[2019-01-20 16:02] VITALS: BP 128/70
[2019-01-20 17:13] VITALS: BP 128/70
--- NOTE | 2019-01-21 06:41 | DISCHARGE SUMMARY ---
DATE OF SERVICE: ADMITTING PHYSICIAN: Angela Luna MD CONSULTANTS: Josse Camacho DO ADMITTING DIAGNOSES: Sigmoid volvulus, ischemic bowel, right lower quadrant abdominal pain. DISCHARGE DIAGNOSES: Colonic obstruction caused by sigmoid volvulus, nausea, leukocytosis, superficial ischemia sigmoid and short segment, status post open sigmoid resection with end-to-end anastomosis, postoperative ileus, hypokalemia, hypomagnesemia. HOSPITAL COURSE: The patient is a 68-year-old female, who presented to the Emergency Department in [place] on 01/13/2019. She had that she was unable to defecate since early this morning. This had continued to worsen all day until she was evaluated. The patient had a CT scan for further evaluation, which demonstrated dilated loops of colon, suspicious for obstruction or sigmoid volvulus. The patient was admitted to the [facility] where a flexible sigmoidoscopy was performed demonstrating a sigmoid volvulus with superficial ischemic changes of the sigmoid short segment. The volvulus was able to be reduced. The patient over the next few days and was monitored closely. She was continuing to improve. No evidence of any further ischemic changes or perforation. The patient on 01/15 underwent bowel prep and on 01/16 underwent open sigmoid resection with end-to-end anastomosis. The patient postoperatively developed an ileus. She had some electrolyte abnormalities, which were all corrected. She was started on clear liquids. The patient tolerated the procedure well without any difficulties. The patient was continued improvement in bowel function, returned on 01/20 where her diet was advanced. Her pain was under control and the patient ready for discharge home. Followup appointments arranged and the patient will have a short-term followup. Please see computer for further discharge instructions. Job ID: [id number] DocumentID: [id number] Dictated Date: 01/20/2019 15:34:53 Conference Planning Manager Date: 01/21/2019 06:40:41 Dictated By: JOSSE CAMACHO DO
== END 2019-01-20 17:50 | disposition home or self-care (01) | DRG 329 ==
LOC: ER FS 15:47 → 4TH 18:30
PROVIDERS: ADMIT Family Medicine; ATTEND Family Medicine
PROC: 0DJD8ZZ Inspection of Lower Intestinal Tract, Via Natural or Artificial Opening Endoscopic (ICD-10-PCS; 2019-01-13)
PROC: 0DSN8ZZ Reposition Sigmoid Colon, Via Natural or Artificial Opening Endoscopic (ICD-10-PCS; principal; 2019-01-13 21:30)
PROC: 0DBN0ZZ Excision of Sigmoid Colon, Open Approach (ICD-10-PCS; 2019-01-16)
DX: K56.2 Volvulus (principal); K55.031 Focal (segmental) acute (reversible) ischemia of large intestine; A41.9 Sepsis, unspecified organism; M54.9 Dorsalgia, unspecified; K91.89 Other postprocedural complications and disorders of digestive system; K56.7 Ileus, unspecified; E87.6 Hypokalemia; E83.42 Hypomagnesemia
CPT/HCPCS: 36415; 74177; 80048; 80053; 81000; 83605; 83735; 85007; 85025; 85027; 87040; 87081; 88307; 94664; 96361; 96365; 96375; 96376

== ENCOUNTER 2019-08-16 14:28 | Outpatient (CLI) | payer MEDICARE, OTHER ==
[~2019-08-16] VITALS: Ht 170.2 cm; Wt 52.7 kg
[~2019-08-16 14:28] MED LIST: ACHD5005 PO; DIPH25CA79 PO; DOCU-143 PO; FOLI200T11 PO; IBUP-2473 PO
== END 2019-08-16 14:45 | disposition home or self-care (01) ==
LOC: PREOP 14:28
PROVIDERS: ATTEND Surgery
DX: Z01.818 Encounter for other preprocedural examination (principal)

== ENCOUNTER 2019-08-22 13:36 | Day surgery (SDC) | payer MEDICARE, OTHER ==
[2019-08-22] MEDS ORDERED: LACTATED RINGERS 1,000 ML IV ONE (13:39)
[2019-08-22] MEDS ORDERED: PROPOFOL INJECTION 50 ML IV ONE (13:48)
[2019-08-22] MEDS ORDERED: MIDAZOLAM 2 MG/2 ML (VERSED) VIAL ONE (13:48)
--- NOTE | 2019-08-22 13:57 | Progress Note-Pre Operative ---
Pre-Operative Progress Note H&P Reviewed The H&P was reviewed, patient examined and no changes noted. Date Seen by Provider: Aug 22, 2019 Time Seen by Provider: 13:56 Date H&P Reviewed: Aug 22, 2019 Time H&P Reviewed: 13:56 Pre-Operative Diagnosis: screening colonoscopy JOSSE CAMACHO DO Aug 22, 2019 13:57
[2019-08-22] MEDS ORDERED: LACTATED RINGERS 1,000 ML IV STA (14:10)
[2019-08-22 14:12] VITALS: BP 126/74
[2019-08-22 14:45] VITALS: BP 100/56
--- NOTE | 2019-08-22 15:12 | Discharge Inst-Simple/Standard ---
Discharge Inst-Standard Patient Instructions/Follow Up Plan of Care/Instructions/FU: Repeat colonoscopy in 10 years unless family history then 5 years. Any issues before that be seen at that time. Activity as Tolerated: Yes Discharge Diet: Regular Diet JOSSE CAMACHO DO Aug 22, 2019 15:12
--- NOTE | 2019-08-22 15:17 | Anesthesia-General Post-Op ---
MAC Patient Condition Mental Status/LOC: Same as Preop Cardiovascular: Satisfactory Nausea/Vomiting: Absent Respiratory: Satisfactory Pain: Controlled Complications: Absent Post Op Complications Complications None Follow Up Care/Instructions Patient Instructions None needed. Anesthesiology Discharge Order Discharge Order Patient is doing well, no complaints, stable vital signs, no apparent adverse anesthesia problems. CALI PENA DO Aug 22, 2019 15:17
[2019-08-22 15:20] VITALS: BP 128/73
[2019-08-22 15:33] VITALS: BP 128/73
--- NOTE | 2019-08-22 19:26 | OPERATIVE REPORT ---
DATE OF SERVICE: 08/22/2019 PREOPERATIVE DIAGNOSIS: Screening colonoscopy. POSTOPERATIVE DIAGNOSIS: Normal colon. PROCEDURE: Colonoscopy. SURGEON: Josse Jones MD ANESTHESIA: Per MDA. ESTIMATED BLOOD LOSS: None. COMPLICATIONS: None. INDICATIONS: The patient is a 69-year-old female due for screening colonoscopy. She understands risks and benefits of procedure and wished to proceed with procedure. Consent was signed in the chart. DESCRIPTION OF PROCEDURE: The patient was taken to the endoscopy suite, placed in left lateral recumbent position. Timeout was performed. Digital rectal exam was performed. There were no palpable polyps, masses or ulcerations. Scope was inserted in the rectum, advanced all the way to cecum with minimal difficulty. Prep was adequate. Scope was then slowly retracted back. There were no polyps, masses or ulcerations within the cecum, ascending, transverse, descending and sigmoid colon. Once in the rectum, scope was retroflexed. No other pathology. The anastomosis from previous colon resection was visualized and had without any pathology noted. Scope was then slowly retracted back to completely remove noting no other pathology. The patient tolerated procedure well without any complications. She was taken to recovery room in stable condition. RECOMMENDATIONS: The patient will need repeat colonoscopy in 10 years unless family history of colon cancer, which then be 5 years. Any issues before that be seen at that time. Job ID: [id number] DocumentID: [id number] Dictated Date: 08/22/2019 14:47:46 Nail Tech Date: 08/22/2019 19:26:01 Dictated By: JOSSE JONES DO
== END 2019-08-22 15:34 | disposition home or self-care (01) ==
LOC: ENDO 13:36
PROVIDERS: ATTEND Surgery
DX: Z12.11 Encounter for screening for malignant neoplasm of colon (principal); J45.909 Unspecified asthma, uncomplicated; Z98.0 Intestinal bypass and anastomosis status; Z79.899 Other long term (current) drug therapy